=== PATIENT | male | born 1970 | race African-American/Black ===

== ENCOUNTER 2017-02-01 20:57 | Inpatient (IN) | payer MEDICARE ==
[~2017-02-01] VITALS: Ht 175.3 cm; Wt 76.4 kg
[~2017-02-01 20:57] MED LIST: BENZ0.5T6 PO; OLAN20TA17 PO; SERT50TA12 PO
[2017-02-01 21:00] VITALS: BP 103/62
[2017-02-01] MEDS ORDERED: HALOPERIDOL 5 MG TABLET PO PRN (21:30)
[2017-02-01] MEDS ORDERED: ACETAMINOPHEN 325 MG TABLET PO PRN (21:45)
[2017-02-01] MEDS ORDERED: IBUPROFEN 600 MG TABLET PO PRN (21:45)
[2017-02-01] MEDS ORDERED: ONDANSETRON HCL 4 MG TABLET PO PRN (21:45)
[2017-02-01] MEDS ORDERED: PETROLATUM,WHITE 71 GM JELLY TP PRN (21:45)
[2017-02-01] MEDS ORDERED: ALBUTEROL SULFATE HFA 90 MCG/PUFF 8 GM INHALER IH PRN (21:45)
[2017-02-01] MEDS ORDERED: BENZOCAINE/MENTHOL LOZENGE PO PRN (21:45)
[2017-02-01] MEDS ORDERED: CloNIDine HCL 0.1 MG TABLET PO PRN (21:45)
[2017-02-01] MEDS ORDERED: LOPERAMIDE HCL 2 MG CAPSULE PO PRN (21:45)
[2017-02-01] MEDS ORDERED: MAGNESIUM HYDROXIDE SUSPENSION 30 ML UDCUP PO PRN (21:45)
[2017-02-01] MEDS ORDERED: MAG HYDROX/AL HYDROX/SIMETH 30 ML SUSP UDCUP PO PRN (21:45)
[2017-02-02 07:22] LABS: BASOPHILS # (AUTO) 0.05 K/uL (0.00-0.20); BASOPHILS % (AUTO) 0.7 % (0.0-2.0); EOSINOPHILS % (AUTO) 9.08 % (1.0-6.0); HEMATOCRIT 40.8 % (41-53); HEMOGLOBIN 13.5 g/dL (13.5-17.5); LYMPHOCYTES # (AUTO) 2.7 K/uL (1.0-4.8); LYMPHOCYTES % (AUTO) 35.3 % (22.0-44.0); MEAN CORPUSCULAR HEMOGLOBIN 28.5 pg (26.0-34.0); MEAN CORPUSCULAR VOLUME 86 fL (80-100); MONOCYTES # (AUTO) 0.6 K/uL (0.1-1.0); MONOCYTES % (AUTO) 7.2 % (2.0-9.0); NEUTROPHILS # (AUTO) 3.7 K/uL (1.8-7.7); NEUTROPHILS % (AUTO) 47.7 % (40.0-70.0); PLATELET COUNT (AUTO) 249 K/uL (150-450); RED BLOOD CELL COUNT(AUTO) 4.73 MIL/uL (4.50-5.90); RED CELL DISTRIBUTION WIDTH 14.7 % (11.5-14.5); WHITE BLOOD COUNT (AUTO) 7.7 K/uL (4.5-11.0)
[2017-02-02 07:48] LABS: HEMOGLOBIN A1C 5.5 % (4.5-6.2)
[2017-02-02 07:58] LABS: ANION GAP 9 mmol/L (8-16); CARBON DIOXIDE 25 mmol/L (22-29); CHLORIDE 107 mmol/L (98-107); CHOL/HDL RATIO 3.6 (4.2-7.3); CREATININE 0.85 mg/dL (0.60-1.30); GLOMERULAR FILTR. RATE CALC > 60 mL/min (>60); POTASSIUM 4.6 mmol/L (3.5-5.1); SODIUM SERUM 141 mmol/L (136-145); THYROID STIMULATING HORMONE 1.61 uIU/mL (0.36-3.74); UREA NITROGEN, BLOOD 19 mg/dL (7-18)
[2017-02-02] MEDS: FERROUS SULFATE 325 MG EC TABLET PO SCH ×2 (08:36→16:58)
[2017-02-02] MEDS: BENZTROPINE MESYLATE 0.5 MG TABLET PO SCH ×2 (08:36→16:45)
[2017-02-02 08:52] VITALS: BP 105/75
[2017-02-02] MEDS ORDERED: BACITRACIN 28.4 GM OINTMENT TP SCH (09:00)
[2017-02-02 16:32] VITALS: BP 110/77
[2017-02-02] MEDS: OLANZapine 10 MG TABLET PO SCH (21:09)
[2017-02-02] MEDS: ZOLPIDEM TARTRATE 10 MG TABLET PO PRN (22:26)
[2017-02-03 00:40] VITALS: BP 106/63
[2017-02-03 08:36] VITALS: BP 103/65
[2017-02-03] MEDS: BENZTROPINE MESYLATE 0.5 MG TABLET PO SCH ×2 (09:27→16:56)
[2017-02-03] MEDS: OMEGA-3/DHA/EPA/FISH OIL 500 MG CAPSULE PO SCH (09:27)
[2017-02-03 16:55] VITALS: BP 111/73
[2017-02-03] MEDS: LORazepam 2 MG TABLET PO PRN (16:56)
[2017-02-03] MEDS: OLANZapine 10 MG TABLET PO SCH (20:44)
[2017-02-03] MEDS: ZOLPIDEM TARTRATE 10 MG TABLET PO PRN (22:11)
[2017-02-04 04:57] VITALS: BP 92/64
[2017-02-04 08:19] VITALS: BP 115/74
[2017-02-04] MEDS: OMEGA-3/DHA/EPA/FISH OIL 500 MG CAPSULE PO SCH (08:53)
[2017-02-04] MEDS: BENZTROPINE MESYLATE 0.5 MG TABLET PO SCH ×2 (08:54→16:30)
[2017-02-04] MEDS: LORazepam 2 MG TABLET PO PRN (09:26)
[2017-02-04 16:20] VITALS: BP 113/79
[2017-02-04] MEDS: OLANZapine 10 MG TABLET PO SCH (20:30)
[2017-02-05 01:14] VITALS: BP 110/68
[2017-02-05 08:39] VITALS: BP 112/67
[2017-02-05] MEDS: BENZTROPINE MESYLATE 0.5 MG TABLET PO SCH ×2 (08:41→16:46)
[2017-02-05] MEDS: OMEGA-3/DHA/EPA/FISH OIL 500 MG CAPSULE PO SCH (08:41)
[2017-02-05 16:21] VITALS: BP 124/75
[2017-02-05] MEDS: OLANZapine 10 MG TABLET PO SCH (20:40)
[2017-02-06 01:42] VITALS: BP 106/61
[2017-02-06 08:35] VITALS: BP 109/69
[2017-02-06] MEDS: OMEGA-3/DHA/EPA/FISH OIL 500 MG CAPSULE PO SCH (09:14)
[2017-02-06] MEDS: BENZTROPINE MESYLATE 0.5 MG TABLET PO SCH ×2 (09:14→17:02)
[2017-02-06 16:15] VITALS: BP 117/84
[2017-02-06] MEDS: OLANZapine 10 MG TABLET PO SCH (20:50)
[2017-02-07 00:12] VITALS: BP 106/68
[2017-02-07 08:34] VITALS: BP 117/73
[2017-02-07] MEDS: OMEGA-3/DHA/EPA/FISH OIL 500 MG CAPSULE PO SCH (09:02)
[2017-02-07] MEDS: BENZTROPINE MESYLATE 0.5 MG TABLET PO SCH ×2 (09:02→16:45)
[2017-02-07 16:12] VITALS: BP 121/70
[2017-02-07] MEDS: OLANZapine 10 MG TABLET PO SCH (20:41)
[2017-02-08 08:00] VITALS: BP 116/72
[2017-02-08] MEDS: OMEGA-3/DHA/EPA/FISH OIL 500 MG CAPSULE PO SCH (09:14)
[2017-02-08] MEDS: BENZTROPINE MESYLATE 0.5 MG TABLET PO SCH ×2 (09:14→16:59)
[2017-02-08 16:28] VITALS: BP 105/72
[2017-02-08] MEDS: OLANZapine 10 MG TABLET PO SCH (20:06)
[2017-02-09 06:03] VITALS: BP 112/70
[2017-02-09 08:19] VITALS: BP 108/72
[2017-02-09] MEDS: BENZTROPINE MESYLATE 0.5 MG TABLET PO SCH ×2 (08:33→16:41)
[2017-02-09] MEDS: OMEGA-3/DHA/EPA/FISH OIL 500 MG CAPSULE PO SCH (08:33)
[2017-02-09] MEDS: LORazepam 2 MG TABLET PO PRN (09:38)
[2017-02-09 16:52] VITALS: BP 110/65
[2017-02-09] MEDS: OLANZapine 10 MG TABLET PO SCH (20:40)
[2017-02-10 06:40] VITALS: BP 116/61
[2017-02-10 08:05] VITALS: BP 110/64
[2017-02-10] MEDS: BENZTROPINE MESYLATE 0.5 MG TABLET PO SCH ×2 (08:15→17:07)
[2017-02-10] MEDS: OMEGA-3/DHA/EPA/FISH OIL 500 MG CAPSULE PO SCH (08:15)
[2017-02-10] MEDS: LORazepam 2 MG TABLET PO PRN (08:19)
[2017-02-10 16:23] VITALS: BP 108/63
[2017-02-10] MEDS: OLANZapine 10 MG TABLET PO SCH (20:38)
[2017-02-11 05:58] VITALS: BP 105/62
[2017-02-11 08:00] VITALS: BP 108/68
[2017-02-11] MEDS: BENZTROPINE MESYLATE 0.5 MG TABLET PO SCH ×2 (08:29→16:58)
[2017-02-11] MEDS: OMEGA-3/DHA/EPA/FISH OIL 500 MG CAPSULE PO SCH (08:30)
[2017-02-11 16:17] VITALS: BP 105/65
[2017-02-11] MEDS: OLANZapine 10 MG TABLET PO SCH (20:34)
[2017-02-12 07:14] VITALS: BP 115/60
[2017-02-12 08:29] VITALS: BP 111/65
[2017-02-12] MEDS: BENZTROPINE MESYLATE 0.5 MG TABLET PO SCH ×2 (09:11→17:03)
[2017-02-12] MEDS: OMEGA-3/DHA/EPA/FISH OIL 500 MG CAPSULE PO SCH (09:11)
[2017-02-12 16:20] VITALS: BP 122/74
[2017-02-12] MEDS: OLANZapine 10 MG TABLET PO SCH (20:38)
[2017-02-13 06:11] VITALS: BP 100/73
[2017-02-13 08:22] VITALS: BP 106/69
[2017-02-13] MEDS: BENZTROPINE MESYLATE 0.5 MG TABLET PO SCH ×2 (09:03→16:49)
[2017-02-13] MEDS: OMEGA-3/DHA/EPA/FISH OIL 500 MG CAPSULE PO SCH (09:03)
[2017-02-13 16:24] VITALS: BP 103/62
[2017-02-13] MEDS: OLANZapine 10 MG TABLET PO SCH (20:34)
[2017-02-14 06:00] VITALS: BP 102/66
[2017-02-14 08:42] VITALS: BP 99/68
[2017-02-14] MEDS: BENZTROPINE MESYLATE 0.5 MG TABLET PO SCH ×2 (09:02→16:44)
[2017-02-14] MEDS: OMEGA-3/DHA/EPA/FISH OIL 500 MG CAPSULE PO SCH (09:02)
[2017-02-14 16:07] VITALS: BP 107/61
[2017-02-14] MEDS: OLANZapine 10 MG TABLET PO SCH (20:32)
[2017-02-15 01:38] VITALS: BP 102/65
[2017-02-15 08:29] VITALS: BP 135/75
[2017-02-15] MEDS: OMEGA-3/DHA/EPA/FISH OIL 500 MG CAPSULE PO SCH (08:32)
[2017-02-15] MEDS: BENZTROPINE MESYLATE 0.5 MG TABLET PO SCH ×2 (08:32→16:20)
[2017-02-15 16:13] VITALS: BP 104/60
[2017-02-15] MEDS: OLANZapine 10 MG TABLET PO SCH (20:18)
[2017-02-16 05:32] VITALS: BP 110/60
[2017-02-16] MEDS: BENZTROPINE MESYLATE 0.5 MG TABLET PO SCH ×2 (08:16→16:51)
[2017-02-16] MEDS: OMEGA-3/DHA/EPA/FISH OIL 500 MG CAPSULE PO SCH (08:16)
[2017-02-16 08:20] VITALS: BP 112/76
[2017-02-16 17:30] VITALS: BP 111/68
[2017-02-16] MEDS: OLANZapine 10 MG TABLET PO SCH (20:29)
[2017-02-17 06:38] VITALS: BP 103/68
[2017-02-17] MEDS: OMEGA-3/DHA/EPA/FISH OIL 500 MG CAPSULE PO SCH (08:23)
[2017-02-17] MEDS: BENZTROPINE MESYLATE 0.5 MG TABLET PO SCH ×2 (08:23→16:58)
[2017-02-17 08:43] VITALS: BP 108/72
[2017-02-17 17:47] VITALS: BP 109/68
[2017-02-17] MEDS: OLANZapine 10 MG TABLET PO SCH (20:30)
[2017-02-18 01:52] VITALS: BP 101/60
[2017-02-18 08:53] VITALS: BP 114/64
[2017-02-18] MEDS: BENZTROPINE MESYLATE 0.5 MG TABLET PO SCH ×2 (09:02→16:33)
[2017-02-18] MEDS: OMEGA-3/DHA/EPA/FISH OIL 500 MG CAPSULE PO SCH (09:02)
[2017-02-18 16:30] VITALS: BP 94/60
[2017-02-18] MEDS: OLANZapine 10 MG TABLET PO SCH (20:31)
[2017-02-19 00:55] VITALS: BP 100/64
[2017-02-19 08:12] VITALS: BP 102/66
[2017-02-19] MEDS: BENZTROPINE MESYLATE 0.5 MG TABLET PO SCH ×2 (08:12→16:28)
[2017-02-19] MEDS: OMEGA-3/DHA/EPA/FISH OIL 500 MG CAPSULE PO SCH (08:12)
[2017-02-19 16:15] VITALS: BP 103/63
[2017-02-19] MEDS: OLANZapine 10 MG TABLET PO SCH (21:04)
[2017-02-20 00:13] VITALS: BP 106/64
[2017-02-20] MEDS ORDERED: OMEG-135 PO (08:03)
[2017-02-20] MEDS: BENZTROPINE MESYLATE 0.5 MG TABLET PO SCH (08:05)
[2017-02-20] MEDS: OMEGA-3/DHA/EPA/FISH OIL 500 MG CAPSULE PO SCH (08:05)
== END 2017-02-20 10:00 | disposition home or self-care (01) | DRG 885 ==
LOC: EDSTATUS 20:57 → B2X 21:24
PROVIDERS: ADMIT Psychiatry & Neurology Psychiatry; ATTEND Psychiatry & Neurology Psychiatry
DX: F20.0 Paranoid schizophrenia (principal); J44.9 Chronic obstructive pulmonary disease, unspecified; E78.5 Hyperlipidemia, unspecified; F17.200 Nicotine dependence, unspecified, uncomplicated; G47.00 Insomnia, unspecified; K21.9 Gastro-esophageal reflux disease without esophagitis; K59.00 Constipation, unspecified; M54.9 Dorsalgia, unspecified; Z71.6 Tobacco abuse counseling; Z56.0 Unemployment, unspecified; Z79.899 Other long term (current) drug therapy
CPT/HCPCS: 83036; 84439; 84443; 87081; 99285

== ENCOUNTER 2018-07-10 15:38 | Inpatient (IN) | payer MEDICARE, MEDICAID ==
[~2018-07-10] VITALS: Ht 177.8 cm; Wt 97.3 kg
[~2018-07-10 15:38] MED LIST changes: +BENZ0.5T44 PO; -BENZ0.5T6 PO; +OMEG-135 PO; -SERT50TA12 PO
[2018-07-10] MEDS ORDERED: LORazepam 2 MG/ML VIAL IM ONE (18:15)
[2018-07-10] MEDS ORDERED: DiphenhydrAMINE HCL 50 MG/ML VIAL IM ONE (18:15)
[2018-07-10] MEDS ORDERED: HALOPERIDOL LACTATE 5 MG/ML VIAL IM ONE (18:15)
[2018-07-10] MEDS ORDERED: LORazepam 2 MG/ML VIAL ONE (18:41)
[2018-07-10] MEDS ORDERED: HALOPERIDOL LACTATE 5 MG/ML VIAL ONE (18:42)
[2018-07-10] MEDS ORDERED: DiphenhydrAMINE HCL 50 MG/ML VIAL ONE (18:42)
[2018-07-10 19:07] VITALS: BP 143/90
[2018-07-10] MEDS: OLANZapine 10 MG TABLET PO SCH (20:07)
[2018-07-10] MEDS ORDERED: MAG HYDROX/AL HYDROX/SIMETH ES 30 ML SUSPENSION UDCUP PO PRN (20:15)
[2018-07-10] MEDS ORDERED: BENZOCAINE/MENTHOL LOZENGE MM PRN (20:15)
[2018-07-10] MEDS ORDERED: DOCUSATE SODIUM 100 MG CAPSULE PO PRN (20:15)
[2018-07-10] MEDS ORDERED: ONDANSETRON HCL 4 MG TABLET PO PRN (20:15)
[2018-07-10] MEDS ORDERED: BACITRACIN 28.4 GM OINTMENT TP PRN (20:15)
[2018-07-10] MEDS ORDERED: ACETAMINOPHEN 325 MG TABLET PO PRN (20:15)
[2018-07-10] MEDS ORDERED: PETROLATUM,WHITE 71 GM JELLY TP PRN (20:15)
[2018-07-10] MEDS ORDERED: ALBUTEROL SULFATE HFA 90 MCG/PUFF 8 GM INHALER IH PRN (20:15)
[2018-07-10] MEDS ORDERED: MAGNESIUM HYDROXIDE SUSPENSION 30 ML UDCUP PO PRN (20:15)
[2018-07-10] MEDS ORDERED: CloNIDine HCL 0.1 MG TABLET PO PRN (20:15)
[2018-07-10] MEDS ORDERED: LOPERAMIDE HCL 2 MG CAPSULE PO PRN (20:15)
[2018-07-10] MEDS ORDERED: IBUPROFEN 600 MG TABLET PO PRN (20:15)
[2018-07-11 00:49] VITALS: BP 132/87
[2018-07-11] MEDS: LORazepam 2 MG TABLET PO PRN ×2 (08:23→16:19)
[2018-07-11] MEDS: OMEPRAZOLE 20 MG CAPSULE PO SCH (08:23)
[2018-07-11] MEDS: BENZTROPINE MESYLATE 0.5 MG TABLET PO SCH ×2 (08:23→16:18)
[2018-07-11 08:48] VITALS: BP 119/86
[2018-07-11] MEDS: HALOPERIDOL 5 MG TABLET PO PRN ×2 (10:58→16:19)
[2018-07-11 16:10] VITALS: BP 123/95
[2018-07-11] MEDS: OLANZapine 10 MG TABLET PO SCH (20:11)
[2018-07-12 00:56] VITALS: BP 135/92
[2018-07-12 08:12] VITALS: BP 132/82
[2018-07-12] MEDS: OMEPRAZOLE 20 MG CAPSULE PO SCH (08:28)
[2018-07-12] MEDS: BENZTROPINE MESYLATE 0.5 MG TABLET PO SCH ×2 (08:28→16:41)
[2018-07-12] MEDS: HALOPERIDOL 5 MG TABLET PO PRN ×2 (08:28→16:41)
[2018-07-12] MEDS: LORazepam 2 MG TABLET PO PRN ×2 (08:28→16:41)
[2018-07-12 16:13] VITALS: BP 136/79
[2018-07-12] MEDS: OLANZapine 10 MG TABLET PO SCH (20:21)
[2018-07-12] MEDS: ZOLPIDEM TARTRATE 10 MG TABLET PO PRN (20:44)
[2018-07-13 00:20] VITALS: BP 129/87
[2018-07-13] MEDS: HALOPERIDOL 5 MG TABLET PO PRN ×3 (01:13→14:33)
[2018-07-13] MEDS: LORazepam 2 MG TABLET PO PRN ×3 (01:13→14:33)
[2018-07-13] MEDS: OMEPRAZOLE 20 MG CAPSULE PO SCH (08:19)
[2018-07-13] MEDS: BENZTROPINE MESYLATE 0.5 MG TABLET PO SCH ×2 (08:19→17:06)
[2018-07-13 16:03] VITALS: BP 102/69
[2018-07-13] MEDS: OLANZapine 10 MG TABLET PO SCH (20:12)
[2018-07-13] MEDS: ZOLPIDEM TARTRATE 10 MG TABLET PO PRN (22:28)
[2018-07-14 00:01] VITALS: BP 138/87
[2018-07-14] MEDS: LORazepam 2 MG TABLET PO PRN ×3 (00:02→10:16)
[2018-07-14] MEDS: HALOPERIDOL 5 MG TABLET PO PRN ×4 (00:03→23:59)
[2018-07-14 05:26] VITALS: BP 142/92
[2018-07-14 08:03] LABS: BAND NEUTROPHILS % (MANUAL) 0 % (0-5)
[2018-07-14 08:12] LABS: HEMATOCRIT 39.8 % (41-53); HEMOGLOBIN 13.2 g/dL (13.5-17.5); MEAN CORPUSCULAR HEMOGLOBIN 27.9 pg (26.0-34.0); MEAN CORPUSCULAR HGB CONC 33.1 G/dL (31.0-37.0); MEAN CORPUSCULAR VOLUME 84 fL (80-100); PLATELET COUNT (AUTO) 250 K/uL (150-450); RED BLOOD CELL COUNT(AUTO) 4.73 MIL/uL (4.50-5.90); RED CELL DISTRIBUTION WIDTH 13.6 % (11.5-14.5)
[2018-07-14 08:37] LABS: ANION GAP 10 mmol/L (8-16); CALCIUM, TOTAL 9.4 mg/dL (8.8-10.5); CARBON DIOXIDE 26 mmol/L (22-29); CHLORIDE 104 mmol/L (98-107); CHOL/HDL RATIO 2.3 (4.2-7.3); CHOLESTEROL 102 mg/dL (131-200); CREATININE 0.77 mg/dL (0.60-1.30); GLOMERULAR FILTR. RATE CALC > 60 mL/min (>60); GLUCOSE,RANDOM 114 mg/dL (70-110); HDL CHOLESTEROL 44 mg/dL (40-60); LDL CHOL (CALC.) 48 mg/dL (0-130); PHOSPHORUS 3.7 mg/dL (2.5-4.9); SODIUM SERUM 140 mmol/L (136-145); THYROID STIMULATING HORMONE 1.17 uIU/mL (0.36-3.74); TRIGLYCERIDES 52 mg/dL (15-150); UREA NITROGEN, BLOOD 17 mg/dL (7-18)
[2018-07-14 08:39] VITALS: BP 140/78
[2018-07-14 09:42] LABS: EOSINOPHILS % (MANUAL) 3 % (1-6); LYMPHOCYTES % (MANUAL) 24 % (22-44); MONOCYTES % (MANUAL) 7 % (2-9); SEGMENTED NEUTROPHILS % 66 % (40-70)
[2018-07-14] MEDS: BENZTROPINE MESYLATE 0.5 MG TABLET PO SCH ×2 (10:10→16:33)
[2018-07-14] MEDS: OMEPRAZOLE 20 MG CAPSULE PO SCH (10:18)
[2018-07-14] MEDS: LACTULOSE 20 GM/30 ML SOLUTION UDCUP PO SCH ×2 (12:30→16:32)
[2018-07-14] MEDS: ZOLPIDEM TARTRATE 10 MG TABLET PO PRN (20:54)
[2018-07-14] MEDS: OLANZapine 10 MG TABLET PO SCH (20:54)
[2018-07-15 00:30] VITALS: BP 110/68
[2018-07-15 08:07] VITALS: BP 141/95
[2018-07-15] MEDS: BENZTROPINE MESYLATE 0.5 MG TABLET PO SCH ×2 (09:44→17:03)
[2018-07-15] MEDS: OMEPRAZOLE 20 MG CAPSULE PO SCH (09:44)
[2018-07-15] MEDS: LACTULOSE 20 GM/30 ML SOLUTION UDCUP PO SCH ×3 (09:45→17:02)
[2018-07-15] MEDS: LORazepam 2 MG TABLET PO PRN (14:17)
[2018-07-15 16:16] VITALS: BP 142/90
[2018-07-15] MEDS ORDERED: MAGNESIUM CITRATE 300 ML ORAL SOLUTION PO ONE (19:45)
[2018-07-15] MEDS: OLANZapine 10 MG TABLET PO SCH (21:03)
[2018-07-16 02:15] VITALS: BP 144/93
[2018-07-16 08:01] LABS: ANION GAP 11 mmol/L (8-16); CALCIUM, TOTAL 10.2 mg/dL (8.8-10.5); CARBON DIOXIDE 27 mmol/L (22-29); CHLORIDE 105 mmol/L (98-107); CREATININE 1.15 mg/dL (0.60-1.30); GLOMERULAR FILTR. RATE CALC > 60 mL/min (>60); GLUCOSE,RANDOM 166 mg/dL (70-110); POTASSIUM 4.4 mmol/L (3.5-5.1); SODIUM SERUM 143 mmol/L (136-145); UREA NITROGEN, BLOOD 20 mg/dL (7-18)
[2018-07-16] MEDS: LORazepam 2 MG TABLET PO PRN ×2 (09:25→21:28)
[2018-07-16] MEDS: DOCUSATE SODIUM 100 MG CAPSULE PO SCH (09:25)
[2018-07-16] MEDS: OMEPRAZOLE 20 MG CAPSULE PO SCH (09:25)
[2018-07-16] MEDS: HALOPERIDOL 5 MG TABLET PO PRN (09:25)
[2018-07-16] MEDS: BENZTROPINE MESYLATE 0.5 MG TABLET PO SCH ×2 (09:25→16:05)
[2018-07-16] MEDS: LACTULOSE 20 GM/30 ML SOLUTION UDCUP PO SCH ×3 (09:26→16:06)
[2018-07-16 13:48] VITALS: BP 150/99
[2018-07-16] MEDS: OLANZapine 10 MG TABLET PO SCH (20:25)
[2018-07-16 21:29] VITALS: BP_SYST 134; BP_SYST 144; BP_DIAS 85; BP_DIAS 92
[2018-07-17] MEDS: BENZTROPINE MESYLATE 0.5 MG TABLET PO SCH ×2 (09:00→16:19)
[2018-07-17] MEDS: LACTULOSE 20 GM/30 ML SOLUTION UDCUP PO SCH ×3 (09:00→16:19)
[2018-07-17] MEDS: DOCUSATE SODIUM 100 MG CAPSULE PO SCH (09:00)
[2018-07-17] MEDS: OMEPRAZOLE 20 MG CAPSULE PO SCH (09:00)
[2018-07-17] MEDS ORDERED: NYSTATIN 15 GM POWDER BOTTLE TP SCH (11:00)
[2018-07-17] MEDS ORDERED: BACITRACIN 28.4 GM OINTMENT TP SCH (11:00)
[2018-07-17] MEDS: HALOPERIDOL 5 MG TABLET PO PRN (11:48)
[2018-07-17] MEDS: LORazepam 2 MG TABLET PO PRN (11:48)
[2018-07-17] MEDS ORDERED: DSS100 PO (15:57)
[2018-07-17] MEDS ORDERED: BACI30OI6 TP (15:57)
[2018-07-17] MEDS ORDERED: NYST30OI6 TP (15:57)
[2018-07-17] MEDS ORDERED: OMEP20 PO (15:57)
[2018-07-17] MEDS ORDERED: LACT30L PO (15:57)
== END 2018-07-17 17:00 | disposition short-term general hospital (02) | DRG 885 ==
LOC: B2X 18:18
PROVIDERS: ADMIT Psychiatry & Neurology Psychiatry; ATTEND Psychiatry & Neurology Psychiatry
DX: F20.0 Paranoid schizophrenia (principal); F17.200 Nicotine dependence, unspecified, uncomplicated; E78.5 Hyperlipidemia, unspecified; E78.1 Pure hyperglyceridemia; G47.00 Insomnia, unspecified; J44.9 Chronic obstructive pulmonary disease, unspecified; K21.9 Gastro-esophageal reflux disease without esophagitis; K59.00 Constipation, unspecified; Z91.19 Patient's noncompliance with other medical treatment and regimen; Z71.6 Tobacco abuse counseling
CPT/HCPCS: 83735; 84100; 84443; 85007; 87081; J1200; J1630; J2060; J3535

== ENCOUNTER 2018-07-17 17:30 | Inpatient (IN) | payer MEDICARE, OTHER ==
[~2018-07-17] VITALS: Ht 175.3 cm; Wt 94.8 kg
[~2018-07-17 17:30] MED LIST changes: +BACI30OI6 TP; +DSS100 PO; +LACT30L PO; +NYST30OI6 TP; +OMEP20 PO
[2018-07-17 18:14] VITALS: BP 129/80
[2018-07-17] MEDS ORDERED: ZOLPIDEM TARTRATE 10 MG TABLET PO PRN (18:15)
[2018-07-17] MEDS ORDERED: LORazepam 2 MG/ML VIAL IM PRN (18:15)
[2018-07-17] MEDS ORDERED: HALOPERIDOL LACTATE 5 MG/ML VIAL IVP PRN (18:15)
[2018-07-17] MEDS ORDERED: CloNIDine HCL 0.1 MG TABLET PO PRN (18:15)
[2018-07-17] MEDS ORDERED: MAG HYDROX/AL HYDROX/SIMETH ES 30 ML SUSPENSION UDCUP PO PRN (18:15)
[2018-07-17] MEDS ORDERED: ONDANSETRON HCL 4 MG TABLET PO PRN (18:15)
[2018-07-17] MEDS ORDERED: LOPERAMIDE HCL 2 MG CAPSULE PO PRN (18:15)
[2018-07-17] MEDS ORDERED: IBUPROFEN 600 MG TABLET PO PRN (18:15)
[2018-07-17] MEDS ORDERED: MAGNESIUM HYDROXIDE SUSPENSION 30 ML UDCUP PO PRN (18:15)
[2018-07-17] MEDS ORDERED: PETROLATUM,WHITE 71 GM JELLY TP PRN (18:15)
[2018-07-17] MEDS ORDERED: HALOPERIDOL 5 MG TABLET PO PRN (18:45)
[2018-07-17] MEDS ORDERED: PNEUMOCOCCAL VACCINE POLYVALENT 0.5 ML VIAL [PPSV23] IM ONE (19:00)
[2018-07-17] MEDS: BENZTROPINE MESYLATE 0.5 MG TABLET PO SCH (20:54)
[2018-07-17] MEDS: LACTULOSE 20 GM/30 ML SOLUTION UDCUP PO SCH (20:54)
[2018-07-17] MEDS: LORazepam 2 MG TABLET PO PRN (20:54)
[2018-07-17] MEDS: OLANZapine 10 MG TABLET PO SCH (20:54)
[2018-07-17] MEDS: DOCUSATE SODIUM 100 MG CAPSULE PO SCH (20:55)
[2018-07-17] MEDS: BACITRACIN 28.4 GM OINTMENT TP SCH (20:55)
[2018-07-17] MEDS: NYSTATIN 30 GM OINTMENT TP SCH (20:55)
[2018-07-17 23:09] VITALS: BP 130/89
[2018-07-18] MEDS: LORazepam 2 MG TABLET PO PRN (03:33)
[2018-07-18 05:47] VITALS: BP 143/98
[2018-07-18 06:16] LABS: BASOPHILS % (AUTO) 0.3 % (0.0-2.0); EOSINOPHILS % (AUTO) 0.1 % (1.0-6.0); HEMATOCRIT 40.2 % (41-53); LYMPHOCYTES # (AUTO) 1.3 K/uL (1.0-4.8); LYMPHOCYTES % (AUTO) 14.9 % (22.0-44.0); MEAN CORPUSCULAR HEMOGLOBIN 27.9 pg (26.0-34.0); MEAN CORPUSCULAR HGB CONC 32.3 G/dL (31.0-37.0); MEAN CORPUSCULAR VOLUME 87 fL (80-100); MONOCYTES # (AUTO) 1.1 K/uL (0.1-1.0); MONOCYTES % (AUTO) 12.6 % (2.0-9.0); NEUTROPHILS # (AUTO) 6.5 K/uL (1.8-7.7); NEUTROPHILS % (AUTO) 72.1 % (40.0-70.0); PLATELET COUNT (AUTO) 289 K/uL (150-450); RED BLOOD CELL COUNT(AUTO) 4.64 MIL/uL (4.50-5.90); RED CELL DISTRIBUTION WIDTH 14.5 % (11.5-14.5)
[2018-07-18 06:37] LABS: LACTIC ACID 1.6 mmol/L (0.4-2.0)
[2018-07-18 06:56] LABS: ALANINE AMINOTRANSFERASE 345 U/L (12-78); ALBUMIN 3.7 g/dL (3.4-5.0); ALKALINE PHOSPHATASE 81 U/L (46-116); ANION GAP 11 mmol/L (8-16); ASPARTATE AMINOTRANSFERASE 120 U/L (15-37); BILIRUBIN,TOTAL 0.8 mg/dL (0.1-1.0); CALCIUM, TOTAL 9.6 mg/dL (8.8-10.5); CARBON DIOXIDE 28 mmol/L (22-29); CHLORIDE 108 mmol/L (98-107); CREATININE 1.23 mg/dL (0.60-1.30); GLOMERULAR FILTR. RATE CALC > 60 mL/min (>60); GLUCOSE,RANDOM 129 mg/dL (70-110); POTASSIUM 4.1 mmol/L (3.5-5.1); SODIUM SERUM 147 mmol/L (136-145); TOTAL PROTEIN, SERUM 8.1 g/dL (6.4-8.2); UREA NITROGEN, BLOOD 28 mg/dL (7-18)
[2018-07-18] MEDS: LACTULOSE 20 GM/30 ML SOLUTION UDCUP PO SCH ×3 (08:54→20:32)
[2018-07-18] MEDS: DOCUSATE SODIUM 100 MG CAPSULE PO SCH (08:54)
[2018-07-18] MEDS: BACITRACIN 28.4 GM OINTMENT TP SCH ×2 (08:56→20:33)
[2018-07-18] MEDS: NYSTATIN 30 GM OINTMENT TP SCH ×2 (08:56→20:33)
[2018-07-18] MEDS: BENZTROPINE MESYLATE 0.5 MG TABLET PO SCH ×2 (08:56→20:32)
[2018-07-18 09:00] VITALS: BP 141/85
[2018-07-18] MEDS ORDERED: OMEPRAZOLE 20 MG CAPSULE PO SCH (09:00)
[2018-07-18] MEDS ORDERED: LORazepam 2 MG/ML VIAL IVP ONE (10:00)
[2018-07-18 11:05] VITALS: BP 128/89
[2018-07-18 13:05] LABS: APPEARANCE,URINE CLEAR (CLEAR); GLUCOSE, URINE (UA) NEGATIVE (NEGATIVE); KETONES,URINE 40 mg/dL (NEGATIVE); LEUKOCYTE ESTERASE ,URINE NEGATIVE (NEGATIVE); NITRATE,URINE NEGATIVE (NEGATIVE); OCCULT BLOOD,URINE SMALL (NEGATIVE); PH,URINE 5.5 (5.0-8.0); PROTEIN,URINE SEE CONFIRM (NEGATIVE); UROBILINOGEN,URINE 0.2 mg/dL (<=1.0)
[2018-07-18 13:27] LABS: AMPHET/METH SCREEN,URINE NEGATIVE (NEGATIVE); BARBITURATE SCREEN, URINE NEGATIVE (NEGATIVE); BENZODIAZEPINES SCREEN,URINE NEGATIVE (NEGATIVE); CANNABINOID SCREEN,URINE NEGATIVE (NEGATIVE); COCAINE SCREEN,URINE NEGATIVE (NEGATIVE); METHADONE SCREEN, URINE NEGATIVE (NEGATIVE); OPIATE SCREEN,URINE NEGATIVE (NEGATIVE); PHENCYCLIDINE SCREEN,URINE NEGATIVE (NEGATIVE)
[2018-07-18 13:55] LABS: BILIRUBIN,URINE PRELIM. POSITIVE (NEGATIVE)
[2018-07-18 14:14] LABS: BACTERIA,URINE Few /HPF (None Seen); SQUAMOUS EPITHELIAL CELL,UR Few /LPF (None Seen); SULFOSALICYLIC ACID,URINE 1+ (Negative); WBC,URINE 0-2 /HPF (0-5)
[2018-07-18 15:40] VITALS: BP 124/86
[2018-07-18] MEDS: BISACODYL 10 MG RECTAL RECTAL SUPPOSITORY PR SCH (16:26)
[2018-07-18] MEDS: OLANZapine 10 MG TABLET PO SCH (20:32)
[2018-07-18] MEDS: HEPARIN SODIUM,PORCINE 5,000 UNITS/ML VIAL SQ SCH (20:32)
[2018-07-18 23:36] VITALS: BP 163/93
[2018-07-19] VITALS (8 sets, daily range): BP systolic 119–162; BP diastolic 80–105
[2018-07-19] MEDS: ALBUTEROL SULFATE HFA 90 MCG/PUFF 8 GM INHALER IH PRN (03:55)
[2018-07-19] MEDS ORDERED: DEXTROSE 5%-0.45% SODIUM CHL 1,000 ML IV ONE (05:23)
[2018-07-19] MEDS ORDERED: IPRATROPIUM BROMIDE 0.5 MG/2.5 ML NEB SOLUTION NEB ONE (05:45)
[2018-07-19] MEDS ORDERED: ALBUTEROL SULFATE 2.5 MG/0.5 ML NEB SOLUTION NEB PRN (05:45)
[2018-07-19] MEDS ORDERED: ALBUTEROL SULFATE 2.5 MG/0.5 ML NEB SOLUTION NEB ONE (05:45)
[2018-07-19] MEDS ORDERED: IPRATROPIUM BROMIDE 0.5 MG/2.5 ML NEB SOLUTION NEB PRN (05:45)
[2018-07-19] MEDS: DEXTROSE 5%-0.45% SODIUM CHL 1,000 ML IV SCH ×3 (05:53→22:50)
[2018-07-19 06:59] LABS: BASOPHILS % (AUTO) 0.1 % (0.0-2.0); EOSINOPHILS % (AUTO) 0 % (1.0-6.0); HEMATOCRIT 45.4 % (41-53); HEMOGLOBIN 14.6 g/dL (13.5-17.5); LYMPHOCYTES # (AUTO) 1.1 K/uL (1.0-4.8); LYMPHOCYTES % (AUTO) 17.3 % (22.0-44.0); MEAN CORPUSCULAR HEMOGLOBIN 27.5 pg (26.0-34.0); MEAN CORPUSCULAR HGB CONC 32.2 G/dL (31.0-37.0); MEAN CORPUSCULAR VOLUME 85 fL (80-100); MONOCYTES # (AUTO) 0.4 K/uL (0.1-1.0); MONOCYTES % (AUTO) 5.9 % (2.0-9.0); NEUTROPHILS % (AUTO) 76.7 % (40.0-70.0); PLATELET COUNT (AUTO) 334 K/uL (150-450); RED BLOOD CELL COUNT(AUTO) 5.32 MIL/uL (4.50-5.90); RED CELL DISTRIBUTION WIDTH 14.3 % (11.5-14.5)
[2018-07-19 07:05] LABS: ANION GAP 15 mmol/L (8-16); CALCIUM, TOTAL 9.7 mg/dL (8.8-10.5); CARBON DIOXIDE 24 mmol/L (22-29); CHLORIDE 106 mmol/L (98-107); CREATININE 1.16 mg/dL (0.60-1.30); GLOMERULAR FILTR. RATE CALC > 60 mL/min (>60); GLUCOSE,RANDOM 212 mg/dL (70-110); POTASSIUM 4.1 mmol/L (3.5-5.1); SODIUM SERUM 145 mmol/L (136-145); UREA NITROGEN, BLOOD 28 mg/dL (7-18)
[2018-07-19 07:10] LABS: ALANINE AMINOTRANSFERASE 325 U/L (12-78); ALBUMIN 3.6 g/dL (3.4-5.0); ALKALINE PHOSPHATASE 94 U/L (46-116); ASPARTATE AMINOTRANSFERASE 95 U/L (15-37); BILIRUBIN,TOTAL 0.8 mg/dL (0.1-1.0); PHOSPHORUS 4.7 mg/dL (2.5-4.9); TOTAL PROTEIN, SERUM 8.2 g/dL (6.4-8.2)
[2018-07-19 08:34] LABS: GLUCOSE,POINT OF CARE 212 MG/DL (70-110)
[2018-07-19] MEDS: BENZTROPINE MESYLATE 0.5 MG TABLET PO SCH ×2 (09:00→19:35)
[2018-07-19] MEDS: NYSTATIN 30 GM OINTMENT TP SCH (09:00)
[2018-07-19] MEDS: DOCUSATE SODIUM 100 MG CAPSULE PO SCH (09:00)
[2018-07-19] MEDS: LACTULOSE 20 GM/30 ML SOLUTION UDCUP PO SCH ×3 (09:00→19:35)
[2018-07-19] MEDS: BACITRACIN 28.4 GM OINTMENT TP SCH (09:00)
[2018-07-19] MEDS: PANTOPRAZOLE SODIUM 40 MG/VIAL IVP SCH (09:06)
[2018-07-19] MEDS: HEPARIN SODIUM,PORCINE 5,000 UNITS/ML VIAL SQ SCH ×2 (09:06→20:13)
[2018-07-19] MEDS: BISACODYL 10 MG RECTAL RECTAL SUPPOSITORY PR SCH (10:04)
[2018-07-20] VITALS (7 sets, daily range): BP systolic 118–165; BP diastolic 82–113
[2018-07-20] MEDS: ALBUTEROL SULFATE HFA 90 MCG/PUFF 8 GM INHALER IH PRN (04:30)
[2018-07-20 05:09] LABS: BASOPHILS % (AUTO) 0.2 % (0.0-2.0); EOSINOPHILS % (AUTO) 0.5 % (1.0-6.0); HEMOGLOBIN 13.1 g/dL (13.5-17.5); LYMPHOCYTES # (AUTO) 1.7 K/uL (1.0-4.8); LYMPHOCYTES % (AUTO) 17.6 % (22.0-44.0); MEAN CORPUSCULAR HEMOGLOBIN 27.5 pg (26.0-34.0); MEAN CORPUSCULAR HGB CONC 32.1 G/dL (31.0-37.0); MEAN CORPUSCULAR VOLUME 86 fL (80-100); MONOCYTES # (AUTO) 0.8 K/uL (0.1-1.0); MONOCYTES % (AUTO) 8.5 % (2.0-9.0); NEUTROPHILS # (AUTO) 7.2 K/uL (1.8-7.7); NEUTROPHILS % (AUTO) 73.2 % (40.0-70.0); PLATELET COUNT (AUTO) 263 K/uL (150-450); RED BLOOD CELL COUNT(AUTO) 4.78 MIL/uL (4.50-5.90); RED CELL DISTRIBUTION WIDTH 14.3 % (11.5-14.5)
[2018-07-20 05:19] LABS: ALANINE AMINOTRANSFERASE 234 U/L (12-78); ALBUMIN 2.9 g/dL (3.4-5.0); ALKALINE PHOSPHATASE 77 U/L (46-116); AMYLASE 19 U/L (25-115); ANION GAP 8 mmol/L (8-16); ASPARTATE AMINOTRANSFERASE 40 U/L (15-37); BILIRUBIN,TOTAL 0.7 mg/dL (0.1-1.0); CALCIUM, TOTAL 9.1 mg/dL (8.8-10.5); CARBON DIOXIDE 31 mmol/L (22-29); CHLORIDE 107 mmol/L (98-107); CREATININE 1.02 mg/dL (0.60-1.30); GLOMERULAR FILTR. RATE CALC > 60 mL/min (>60); GLUCOSE,RANDOM 125 mg/dL (70-110); LIPASE 39 U/L (73-393); PHOSPHORUS 2.7 mg/dL (2.5-4.9); POTASSIUM 3.5 mmol/L (3.5-5.1); SODIUM SERUM 146 mmol/L (136-145); TOTAL PROTEIN, SERUM 7.1 g/dL (6.4-8.2); UREA NITROGEN, BLOOD 20 mg/dL (7-18)
[2018-07-20] MEDS ORDERED: SODIUM CHLORIDE 0.9% 1,000 ML IV ONE (08:36)
[2018-07-20] MEDS: BISACODYL 10 MG RECTAL RECTAL SUPPOSITORY PR SCH (08:55)
[2018-07-20] MEDS: HEPARIN SODIUM,PORCINE 5,000 UNITS/ML VIAL SQ SCH ×2 (08:55→21:26)
[2018-07-20] MEDS: PANTOPRAZOLE SODIUM 40 MG/VIAL IVP SCH (08:55)
[2018-07-20] MEDS: ONDANSETRON HCL 4 MG/2 ML VIAL IVP PRN (08:55)
[2018-07-20] MEDS: LORazepam 2 MG/ML VIAL IVP PRN (08:55)
[2018-07-20] MEDS: LACTULOSE 20 GM/30 ML SOLUTION UDCUP PO SCH ×3 (08:56→21:26)
[2018-07-20] MEDS: BENZTROPINE MESYLATE 0.5 MG TABLET PO SCH ×2 (08:56→21:26)
[2018-07-20] MEDS: DOCUSATE SODIUM 100 MG CAPSULE PO SCH (08:56)
[2018-07-20] MEDS: DEXTROSE 5%-0.45% SODIUM CHL 1,000 ML IV SCH ×2 (11:50→21:27)
[2018-07-21] VITALS (10 sets, daily range): BP systolic 122–139; BP diastolic 83–99
[2018-07-21 04:37] LABS: BASOPHILS % (AUTO) 0.3 % (0.0-2.0); EOSINOPHILS % (AUTO) 2.1 % (1.0-6.0); HEMATOCRIT 36.9 % (41-53); LYMPHOCYTES # (AUTO) 1.2 K/uL (1.0-4.8); LYMPHOCYTES % (AUTO) 14.2 % (22.0-44.0); MEAN CORPUSCULAR HEMOGLOBIN 27.7 pg (26.0-34.0); MEAN CORPUSCULAR HGB CONC 32.5 G/dL (31.0-37.0); MEAN CORPUSCULAR VOLUME 85 fL (80-100); MONOCYTES # (AUTO) 0.7 K/uL (0.1-1.0); MONOCYTES % (AUTO) 8.5 % (2.0-9.0); NEUTROPHILS # (AUTO) 6.3 K/uL (1.8-7.7); NEUTROPHILS % (AUTO) 74.9 % (40.0-70.0); PLATELET COUNT (AUTO) 237 K/uL (150-450); RED BLOOD CELL COUNT(AUTO) 4.32 MIL/uL (4.50-5.90); RED CELL DISTRIBUTION WIDTH 14.2 % (11.5-14.5)
[2018-07-21 04:48] LABS: ANION GAP 9 mmol/L (8-16); CARBON DIOXIDE 27 mmol/L (22-29); CHLORIDE 109 mmol/L (98-107); GLOMERULAR FILTR. RATE CALC > 60 mL/min (>60); GLUCOSE,RANDOM 122 mg/dL (70-110); POTASSIUM 3.3 mmol/L (3.5-5.1); SODIUM SERUM 145 mmol/L (136-145); UREA NITROGEN, BLOOD 16 mg/dL (7-18)
[2018-07-21] MEDS ORDERED: POTASSIUM CHL 10 MEQ/WATER 50 ML IV PRN (06:00)
[2018-07-21] MEDS ORDERED: POTASSIUM CHLORIDE 20 MEQ ER TABLET PO PRN (06:00)
[2018-07-21] MEDS: POTASSIUM CHLORIDE 10% 40 MEQ/30 ML LIQUID UDCUP NG PRN ×3 (06:07→07:11)
[2018-07-21] MEDS: DEXTROSE 5%-0.45% SODIUM CHL 1,000 ML IV SCH ×4 (06:12→23:25)
[2018-07-21] MEDS: POTASSIUM CHL 10 MEQ/WATER 50 ML IV PRN ×3 (06:21→08:15)
[2018-07-21] MEDS: LORazepam 2 MG/ML VIAL IVP PRN (08:14)
[2018-07-21] MEDS: HEPARIN SODIUM,PORCINE 5,000 UNITS/ML VIAL SQ SCH ×2 (09:22→21:29)
[2018-07-21] MEDS: DOCUSATE SODIUM 100 MG CAPSULE PO SCH (09:22)
[2018-07-21] MEDS: PANTOPRAZOLE SODIUM 40 MG/VIAL IVP SCH (09:22)
[2018-07-22 04:16] VITALS: BP 132/79
[2018-07-22] MEDS: DEXTROSE 5%-0.45% SODIUM CHL 1,000 ML IV SCH ×3 (06:32→20:47)
[2018-07-22 07:32] LABS: BASOPHILS % (AUTO) 0.4 % (0.0-2.0); EOSINOPHILS % (AUTO) 3.6 % (1.0-6.0); HEMATOCRIT 37.3 % (41-53); HEMOGLOBIN 12.1 g/dL (13.5-17.5); LYMPHOCYTES # (AUTO) 1.2 K/uL (1.0-4.8); LYMPHOCYTES % (AUTO) 19.2 % (22.0-44.0); MEAN CORPUSCULAR HEMOGLOBIN 27.5 pg (26.0-34.0); MEAN CORPUSCULAR HGB CONC 32.4 G/dL (31.0-37.0); MEAN CORPUSCULAR VOLUME 85 fL (80-100); MONOCYTES # (AUTO) 0.5 K/uL (0.1-1.0); MONOCYTES % (AUTO) 7.3 % (2.0-9.0); NEUTROPHILS # (AUTO) 4.5 K/uL (1.8-7.7); NEUTROPHILS % (AUTO) 69.5 % (40.0-70.0); PLATELET COUNT (AUTO) 261 K/uL (150-450); RED CELL DISTRIBUTION WIDTH 13.6 % (11.5-14.5)
[2018-07-22 07:41] VITALS: BP 140/91
[2018-07-22] MEDS ORDERED: MAGNESIUM CITRATE 300 ML ORAL SOLUTION PO ONE (07:45)
[2018-07-22 07:48] LABS: ALANINE AMINOTRANSFERASE 119 U/L (12-78); ALBUMIN 2.4 g/dL (3.4-5.0); ALKALINE PHOSPHATASE 62 U/L (46-116); ANION GAP 8 mmol/L (8-16); ASPARTATE AMINOTRANSFERASE 36 U/L (15-37); BILIRUBIN,TOTAL 0.5 mg/dL (0.1-1.0); CALCIUM, TOTAL 8.5 mg/dL (8.8-10.5); CARBON DIOXIDE 25 mmol/L (22-29); CHLORIDE 101 mmol/L (98-107); CREATININE 0.63 mg/dL (0.60-1.30); GLOMERULAR FILTR. RATE CALC > 60 mL/min (>60); GLUCOSE,RANDOM 131 mg/dL (70-110); SODIUM SERUM 134 mmol/L (136-145); TOTAL PROTEIN, SERUM 6.4 g/dL (6.4-8.2)
[2018-07-22 08:09] LABS: UREA NITROGEN, BLOOD 9 mg/dL (7-18)
[2018-07-22] MEDS: HEPARIN SODIUM,PORCINE 5,000 UNITS/ML VIAL SQ SCH ×2 (08:39→20:45)
[2018-07-22] MEDS: DOCUSATE SODIUM 100 MG CAPSULE PO SCH (08:39)
[2018-07-22] MEDS: PANTOPRAZOLE SODIUM 40 MG/VIAL IVP SCH (08:39)
[2018-07-22] MEDS: POTASSIUM CHLORIDE 20 MEQ ER TABLET PO PRN (08:39)
[2018-07-22] MEDS ORDERED: POTASSIUM CHLORIDE 10% 40 MEQ/30 ML LIQUID UDCUP PO PRN (09:45)
[2018-07-22] MEDS: POTASSIUM CHLORIDE 10% 40 MEQ/30 ML LIQUID UDCUP NG PRN (09:56)
[2018-07-22 11:25] VITALS: BP 127/92
[2018-07-22 15:15] VITALS: BP 135/93
[2018-07-22] MEDS ORDERED: SODIUM PHOS/SODIUM BIPHOS 133 ML ENEMA PR ONE (18:00)
[2018-07-22] MEDS: LACTULOSE 20 GM/30 ML SOLUTION UDCUP PO SCH ×3 (18:40→22:41)
[2018-07-22 20:30] VITALS: BP 138/86
[2018-07-23] VITALS (7 sets, daily range): BP systolic 117–139; BP diastolic 65–95
[2018-07-23] MEDS: LACTULOSE 20 GM/30 ML SOLUTION UDCUP PO SCH ×13 (00:52→23:48)
[2018-07-23 06:15] LABS: ALANINE AMINOTRANSFERASE 209 U/L (12-78); ALKALINE PHOSPHATASE 81 U/L (46-116); ANION GAP 15 mmol/L (8-16); ASPARTATE AMINOTRANSFERASE 85 U/L (15-37); BILIRUBIN,TOTAL 0.5 mg/dL (0.1-1.0); CALCIUM, TOTAL 9.1 mg/dL (8.8-10.5); CARBON DIOXIDE 20 mmol/L (22-29); CHLORIDE 104 mmol/L (98-107); CREATININE 0.99 mg/dL (0.60-1.30); GLOMERULAR FILTR. RATE CALC > 60 mL/min (>60); GLUCOSE,RANDOM 150 mg/dL (70-110); POTASSIUM 3.2 mmol/L (3.5-5.1); SODIUM SERUM 139 mmol/L (136-145); UREA NITROGEN, BLOOD 8 mg/dL (7-18)
[2018-07-23] MEDS: DEXTROSE 5%-0.45% SODIUM CHL 1,000 ML IV SCH ×4 (06:57→23:48)
[2018-07-23] MEDS: HEPARIN SODIUM,PORCINE 5,000 UNITS/ML VIAL SQ SCH ×2 (08:28→20:07)
[2018-07-23] MEDS: DOCUSATE SODIUM 100 MG CAPSULE PO SCH (08:28)
[2018-07-23] MEDS: PANTOPRAZOLE SODIUM 40 MG/VIAL IVP SCH (08:28)
[2018-07-23] MEDS: POTASSIUM CHLORIDE 10% 40 MEQ/30 ML LIQUID UDCUP NG PRN (10:45)
[2018-07-23] MEDS: BENZTROPINE MESYLATE 0.5 MG TABLET PO SCH (22:18)
[2018-07-23] MEDS: OLANZapine 10 MG TABLET PO SCH (22:18)
[2018-07-24] MEDS: LACTULOSE 20 GM/30 ML SOLUTION UDCUP PO SCH ×7 (01:49→19:57)
[2018-07-24 04:15] VITALS: BP 134/92
[2018-07-24] MEDS: ONDANSETRON HCL 4 MG/2 ML VIAL IVP PRN (05:48)
[2018-07-24 07:44] VITALS: BP 127/89
[2018-07-24 08:50] LABS: ALANINE AMINOTRANSFERASE 221 U/L (12-78); ALKALINE PHOSPHATASE 87 U/L (46-116); ANION GAP 16 mmol/L (8-16); ASPARTATE AMINOTRANSFERASE 67 U/L (15-37); BILIRUBIN,TOTAL 0.3 mg/dL (0.1-1.0); CARBON DIOXIDE 18 mmol/L (22-29); CHLORIDE 110 mmol/L (98-107); CREATININE 0.97 mg/dL (0.60-1.30); GLOMERULAR FILTR. RATE CALC > 60 mL/min (>60); GLUCOSE,RANDOM 141 mg/dL (70-110); POTASSIUM 3.2 mmol/L (3.5-5.1); SODIUM SERUM 144 mmol/L (136-145); UREA NITROGEN, BLOOD 8 mg/dL (7-18)
[2018-07-24] MEDS: PANTOPRAZOLE SODIUM 40 MG/VIAL IVP SCH (09:14)
[2018-07-24] MEDS: HEPARIN SODIUM,PORCINE 5,000 UNITS/ML VIAL SQ SCH ×2 (09:14→19:57)
[2018-07-24] MEDS: DOCUSATE SODIUM 100 MG CAPSULE PO SCH (09:15)
[2018-07-24] MEDS: BENZTROPINE MESYLATE 0.5 MG TABLET PO SCH ×2 (09:18→19:56)
[2018-07-24] MEDS: DEXTROSE 5%-0.45% SODIUM CHL 1,000 ML IV SCH (09:24)
[2018-07-24 11:34] VITALS: BP 122/80
[2018-07-24 15:24] VITALS: BP 132/94
[2018-07-24] MEDS: POTASSIUM CHLORIDE 10% 40 MEQ/30 ML LIQUID UDCUP NG PRN (18:12)
[2018-07-24 19:55] VITALS: BP 132/85
[2018-07-24] MEDS: OLANZapine 10 MG TABLET PO SCH (19:59)
[2018-07-25] VITALS (7 sets, daily range): BP systolic 118–149; BP diastolic 55–93
[2018-07-25] MEDS ORDERED: SODIUM CHLORIDE 0.9% 100 ML ONE (02:33)
[2018-07-25] MEDS: POTASSIUM CHL 10 MEQ/WATER 50 ML IV PRN ×8 (02:42→18:01)
[2018-07-25] MEDS: ALBUTEROL SULFATE HFA 90 MCG/PUFF 8 GM INHALER IH PRN (02:46)
[2018-07-25] MEDS ORDERED: SODIUM CHLORIDE 0.9% 250 ML IV ONE ×2 (05:32→18:57)
[2018-07-25 06:38] LABS: ALANINE AMINOTRANSFERASE 175 U/L (12-78); ALBUMIN 2.5 g/dL (3.4-5.0); ALKALINE PHOSPHATASE 71 U/L (46-116); ANION GAP 15 mmol/L (8-16); ASPARTATE AMINOTRANSFERASE 49 U/L (15-37); BILIRUBIN,TOTAL 0.3 mg/dL (0.1-1.0); CALCIUM, TOTAL 8.9 mg/dL (8.8-10.5); CARBON DIOXIDE 20 mmol/L (22-29); CHLORIDE 105 mmol/L (98-107); CREATININE 0.78 mg/dL (0.60-1.30); GLOMERULAR FILTR. RATE CALC > 60 mL/min (>60); GLUCOSE,RANDOM 115 mg/dL (70-110); SODIUM SERUM 140 mmol/L (136-145); TOTAL PROTEIN, SERUM 6.2 g/dL (6.4-8.2); UREA NITROGEN, BLOOD 7 mg/dL (7-18)
[2018-07-25 06:42] LABS: POTASSIUM 2.6 mmol/L (3.5-5.1)
[2018-07-25] MEDS: DOCUSATE SODIUM 100 MG CAPSULE PO SCH (08:20)
[2018-07-25] MEDS: PANTOPRAZOLE SODIUM 40 MG/VIAL IVP SCH (08:20)
[2018-07-25] MEDS: LACTULOSE 20 GM/30 ML SOLUTION UDCUP PO SCH ×3 (08:20→20:24)
[2018-07-25] MEDS: BENZTROPINE MESYLATE 0.5 MG TABLET PO SCH ×2 (08:20→20:25)
[2018-07-25] MEDS: HEPARIN SODIUM,PORCINE 5,000 UNITS/ML VIAL SQ SCH ×2 (08:21→20:25)
[2018-07-25] MEDS ORDERED: SODIUM CHLORIDE 0.9% 500 ML IV ONE (11:18)
[2018-07-25] MEDS: POTASSIUM CHLORIDE 20 MEQ ER TABLET PO PRN (20:25)
[2018-07-25] MEDS: OLANZapine 10 MG TABLET PO SCH (20:25)
[2018-07-26 03:12] VITALS: BP 121/71
[2018-07-26 07:44] VITALS: BP 126/64
[2018-07-26] MEDS: LACTULOSE 20 GM/30 ML SOLUTION UDCUP PO SCH ×3 (10:19→21:21)
[2018-07-26] MEDS: HEPARIN SODIUM,PORCINE 5,000 UNITS/ML VIAL SQ SCH ×2 (10:19→21:22)
[2018-07-26] MEDS: DOCUSATE SODIUM 100 MG CAPSULE PO SCH (10:19)
[2018-07-26] MEDS: BENZTROPINE MESYLATE 0.5 MG TABLET PO SCH ×2 (10:19→21:21)
[2018-07-26] MEDS: PANTOPRAZOLE SODIUM 40 MG/VIAL IVP SCH (10:19)
[2018-07-26 12:11] VITALS: BP 119/62
[2018-07-26 16:03] VITALS: BP 132/64
[2018-07-26 19:15] VITALS: BP 128/62
[2018-07-26] MEDS: OLANZapine 10 MG TABLET PO SCH (21:22)
[2018-07-26 23:15] VITALS: BP 131/64
[2018-07-27 03:50] VITALS: BP 126/66
[2018-07-27 06:07] LABS: BASOPHILS % (AUTO) 0.8 % (0.0-2.0); EOSINOPHILS % (AUTO) 2.4 % (1.0-6.0); HEMATOCRIT 34.7 % (41-53); HEMOGLOBIN 11.6 g/dL (13.5-17.5); LYMPHOCYTES % (AUTO) 18.4 % (22.0-44.0); MEAN CORPUSCULAR HEMOGLOBIN 27.9 pg (26.0-34.0); MEAN CORPUSCULAR HGB CONC 33.4 G/dL (31.0-37.0); MEAN CORPUSCULAR VOLUME 84 fL (80-100); MONOCYTES # (AUTO) 0.6 K/uL (0.1-1.0); MONOCYTES % (AUTO) 5.9 % (2.0-9.0); NEUTROPHILS # (AUTO) 7.7 K/uL (1.8-7.7); NEUTROPHILS % (AUTO) 72.5 % (40.0-70.0); PLATELET COUNT (AUTO) 236 K/uL (150-450); RED BLOOD CELL COUNT(AUTO) 4.15 MIL/uL (4.50-5.90); RED CELL DISTRIBUTION WIDTH 13.8 % (11.5-14.5)
[2018-07-27 06:33] LABS: ALANINE AMINOTRANSFERASE 237 U/L (12-78); ALBUMIN 2.5 g/dL (3.4-5.0); ALKALINE PHOSPHATASE 71 U/L (46-116); ANION GAP 11 mmol/L (8-16); ASPARTATE AMINOTRANSFERASE 88 U/L (15-37); BILIRUBIN,TOTAL 0.5 mg/dL (0.1-1.0); CARBON DIOXIDE 26 mmol/L (22-29); CHLORIDE 103 mmol/L (98-107); CREATININE 0.63 mg/dL (0.60-1.30); GLOMERULAR FILTR. RATE CALC > 60 mL/min (>60); GLUCOSE,RANDOM 96 mg/dL (70-110); POTASSIUM 3.2 mmol/L (3.5-5.1); SODIUM SERUM 140 mmol/L (136-145); TOTAL PROTEIN, SERUM 5.8 g/dL (6.4-8.2); UREA NITROGEN, BLOOD 8 mg/dL (7-18)
[2018-07-27 07:30] VITALS: BP 110/62
[2018-07-27] MEDS: PANTOPRAZOLE SODIUM 40 MG/VIAL IVP SCH (09:48)
[2018-07-27] MEDS: HEPARIN SODIUM,PORCINE 5,000 UNITS/ML VIAL SQ SCH (09:49)
[2018-07-27] MEDS: BENZTROPINE MESYLATE 0.5 MG TABLET PO SCH (09:50)
[2018-07-27] MEDS: DOCUSATE SODIUM 100 MG CAPSULE PO SCH (09:50)
[2018-07-27] MEDS: LACTULOSE 20 GM/30 ML SOLUTION UDCUP PO SCH ×2 (09:50→16:55)
[2018-07-27] MEDS: POTASSIUM CHLORIDE 20 MEQ ER TABLET PO PRN (09:54)
[2018-07-27 11:00] VITALS: BP 124/68
[2018-07-27 15:11] VITALS: BP 130/68
== END 2018-07-27 18:45 | DRG 642 ==
LOC: 6N 17:30 → ICU 07-19 05:34 → 6N 07-21 14:30
PROVIDERS: ADMIT Internal Medicine; ATTEND Internal Medicine
PROC: 0D9670Z Drainage of Stomach with Drainage Device, Via Natural or Artificial Opening (ICD-10-PCS; principal; 2018-07-19)
DX: E72.20 Disorder of urea cycle metabolism, unspecified (principal); K56.7 Ileus, unspecified; E87.0 Hyperosmolality and hypernatremia; F20.0 Paranoid schizophrenia; G93.40 Encephalopathy, unspecified; I10 Essential (primary) hypertension; K59.00 Constipation, unspecified; K21.9 Gastro-esophageal reflux disease without esophagitis; B35.9 Dermatophytosis, unspecified; G47.00 Insomnia, unspecified; T43.8X5A Adverse effect of other psychotropic drugs, initial encounter; E78.5 Hyperlipidemia, unspecified; J44.9 Chronic obstructive pulmonary disease, unspecified; R00.0 Tachycardia, unspecified; R09.02 Hypoxemia; Z79.899 Other long term (current) drug therapy; Z72.0 Tobacco use; Z71.89 Other specified counseling; Y92.89 Other specified places as the place of occurrence of the external cause
CPT/HCPCS: 70450; 74018; 74176; 80074; 80307; 83605; 83735; 84100; 84132; 87081; 92610; 94640; C9113; G0378; J1644; J2060; J2405; J3480; J3535; J7030; J7040; J7050

== ENCOUNTER 2018-07-27 16:29 | Inpatient (IN) | payer MEDICARE, MEDICAID ==
[~2018-07-27] VITALS: Ht 177.8 cm; Wt 89.2 kg
[~2018-07-27 16:29] MED LIST changes: -OMEG-135 PO
[2018-07-27] MEDS ORDERED: HALOPERIDOL 5 MG TABLET PO PRN (17:45)
[2018-07-27] MEDS ORDERED: ZOLPIDEM TARTRATE 10 MG TABLET PO PRN (17:45)
[2018-07-27 19:00] VITALS: BP 122/73
[2018-07-27] MEDS ORDERED: ONDANSETRON HCL 4 MG TABLET PO PRN (20:15)
[2018-07-27] MEDS ORDERED: CloNIDine HCL 0.1 MG TABLET PO PRN (20:15)
[2018-07-27] MEDS ORDERED: MAGNESIUM HYDROXIDE SUSPENSION 30 ML UDCUP PO PRN (20:15)
[2018-07-27] MEDS ORDERED: BACITRACIN 28.4 GM OINTMENT TP PRN (20:15)
[2018-07-27] MEDS ORDERED: BENZOCAINE/MENTHOL LOZENGE MM PRN (20:15)
[2018-07-27] MEDS ORDERED: PETROLATUM,WHITE 28 GM JELLY TP PRN (20:15)
[2018-07-27] MEDS ORDERED: ACETAMINOPHEN 325 MG TABLET PO PRN (20:15)
[2018-07-27] MEDS ORDERED: MAG HYDROX/AL HYDROX/SIMETH ES 30 ML SUSPENSION UDCUP PO PRN (20:15)
[2018-07-27] MEDS ORDERED: IBUPROFEN 600 MG TABLET PO PRN (20:15)
[2018-07-27] MEDS ORDERED: ALBUTEROL SULFATE HFA 90 MCG/PUFF 8 GM INHALER IH PRN (20:15)
[2018-07-27] MEDS ORDERED: LOPERAMIDE HCL 2 MG CAPSULE PO PRN (20:15)
[2018-07-27] MEDS: LACTULOSE 20 GM/30 ML SOLUTION UDCUP PO SCH (20:43)
[2018-07-27] MEDS: OLANZapine 10 MG TABLET PO SCH (20:44)
[2018-07-27] MEDS ORDERED: BENZTROPINE MESYLATE 0.5 MG TABLET PO SCH (21:00)
[2018-07-28] MEDS: DOCUSATE SODIUM 100 MG CAPSULE PO SCH (08:42)
[2018-07-28] MEDS: OMEPRAZOLE 20 MG CAPSULE PO SCH (08:42)
[2018-07-28] MEDS: LACTULOSE 20 GM/30 ML SOLUTION UDCUP PO SCH ×3 (08:43→17:16)
[2018-07-28] MEDS ORDERED: PANTOPRAZOLE SODIUM 40 MG DR TABLET PO SCH (09:00)
[2018-07-28 10:09] VITALS: BP 109/75
[2018-07-28 16:21] VITALS: BP 116/80
[2018-07-28] MEDS: OLANZapine 10 MG TABLET PO SCH (20:39)
[2018-07-29 08:09] VITALS: BP 152/104
[2018-07-29] MEDS: OMEPRAZOLE 20 MG CAPSULE PO SCH (08:35)
[2018-07-29] MEDS: LACTULOSE 20 GM/30 ML SOLUTION UDCUP PO SCH ×3 (08:35→17:05)
[2018-07-29] MEDS: DOCUSATE SODIUM 100 MG CAPSULE PO SCH (08:35)
[2018-07-29 10:31] LABS: BAND NEUTROPHILS % (MANUAL) 0 % (0-5)
[2018-07-29 10:37] LABS: HEMATOCRIT 38.9 % (41-53); HEMOGLOBIN 12.6 g/dL (13.5-17.5); MEAN CORPUSCULAR HEMOGLOBIN 27.3 pg (26.0-34.0); MEAN CORPUSCULAR HGB CONC 32.3 G/dL (31.0-37.0); MEAN CORPUSCULAR VOLUME 84 fL (80-100); PLATELET COUNT (AUTO) 309 K/uL (150-450); RED BLOOD CELL COUNT(AUTO) 4.61 MIL/uL (4.50-5.90); RED CELL DISTRIBUTION WIDTH 14.2 % (11.5-14.5)
[2018-07-29 11:03] LABS: ANION GAP 8 mmol/L (8-16); CALCIUM, TOTAL 8.8 mg/dL (8.8-10.5); CARBON DIOXIDE 28 mmol/L (22-29); CHLORIDE 105 mmol/L (98-107); CREATININE 0.94 mg/dL (0.60-1.30); GLOMERULAR FILTR. RATE CALC > 60 mL/min (>60); GLUCOSE,RANDOM 107 mg/dL (70-110); PHOSPHORUS 3.4 mg/dL (2.5-4.9); POTASSIUM 3.8 mmol/L (3.5-5.1); SODIUM SERUM 141 mmol/L (136-145); UREA NITROGEN, BLOOD 13 mg/dL (7-18)
[2018-07-29 11:05] LABS: EOSINOPHILS % (MANUAL) 1 % (1-6); LYMPHOCYTES % (MANUAL) 13 % (22-44); MONOCYTES % (MANUAL) 3 % (2-9); SEGMENTED NEUTROPHILS % 83 % (40-70)
[2018-07-29 16:13] VITALS: BP 117/70
[2018-07-29] MEDS: OLANZapine 10 MG TABLET PO SCH (20:42)
[2018-07-30 06:30] LABS: CHOL/HDL RATIO 4.1 (4.2-7.3); THYROID STIMULATING HORMONE 1.05 uIU/mL (0.36-3.74)
[2018-07-30] MEDS: LACTULOSE 20 GM/30 ML SOLUTION UDCUP PO SCH ×3 (08:09→16:10)
[2018-07-30] MEDS: OMEPRAZOLE 20 MG CAPSULE PO SCH (08:09)
[2018-07-30] MEDS: DOCUSATE SODIUM 100 MG CAPSULE PO SCH (08:09)
[2018-07-30 10:41] VITALS: BP 113/76
[2018-07-30 16:55] VITALS: BP 115/67
[2018-07-30] MEDS: OLANZapine 10 MG TABLET PO SCH (20:15)
[2018-07-31 08:05] VITALS: BP 123/86
[2018-07-31] MEDS: LACTULOSE 20 GM/30 ML SOLUTION UDCUP PO SCH ×3 (08:45→16:11)
[2018-07-31] MEDS: DOCUSATE SODIUM 100 MG CAPSULE PO SCH (08:45)
[2018-07-31] MEDS: OMEPRAZOLE 20 MG CAPSULE PO SCH (08:45)
[2018-07-31 16:26] VITALS: BP 113/71
[2018-07-31] MEDS: OLANZapine 10 MG TABLET PO SCH (20:20)
[2018-08-01 06:17] LABS: BAND NEUTROPHILS % (MANUAL) 0 % (0-5)
[2018-08-01 06:25] LABS: HEMATOCRIT 39.3 % (41-53); HEMOGLOBIN 12.7 g/dL (13.5-17.5); MEAN CORPUSCULAR HEMOGLOBIN 27.4 pg (26.0-34.0); MEAN CORPUSCULAR HGB CONC 32.3 G/dL (31.0-37.0); MEAN CORPUSCULAR VOLUME 85 fL (80-100); PLATELET COUNT (AUTO) 356 K/uL (150-450); RED BLOOD CELL COUNT(AUTO) 4.64 MIL/uL (4.50-5.90); RED CELL DISTRIBUTION WIDTH 14.2 % (11.5-14.5)
[2018-08-01 06:39] LABS: ANION GAP 8 mmol/L (8-16); CALCIUM, TOTAL 9.5 mg/dL (8.8-10.5); CARBON DIOXIDE 28 mmol/L (22-29); CHLORIDE 103 mmol/L (98-107); CREATININE 0.91 mg/dL (0.60-1.30); GLOMERULAR FILTR. RATE CALC > 60 mL/min (>60); GLUCOSE,RANDOM 102 mg/dL (70-110); PHOSPHORUS 4.1 mg/dL (2.5-4.9); POTASSIUM 4.1 mmol/L (3.5-5.1); SODIUM SERUM 139 mmol/L (136-145); UREA NITROGEN, BLOOD 13 mg/dL (7-18)
[2018-08-01 08:04] LABS: BASOPHILS % (MANUAL) 1 % (0-2); EOSINOPHILS % (MANUAL) 1 % (1-6); LYMPHOCYTES % (MANUAL) 19 % (22-44); MONOCYTES % (MANUAL) 8 % (2-9); SEGMENTED NEUTROPHILS % 71 % (40-70)
[2018-08-01] MEDS: LACTULOSE 20 GM/30 ML SOLUTION UDCUP PO SCH ×3 (08:06→15:55)
[2018-08-01] MEDS: DOCUSATE SODIUM 100 MG CAPSULE PO SCH (08:06)
[2018-08-01] MEDS: OMEPRAZOLE 20 MG CAPSULE PO SCH (08:06)
[2018-08-01 10:24] VITALS: BP 107/92
[2018-08-01 18:03] VITALS: BP 135/84
[2018-08-01] MEDS: OLANZapine 10 MG TABLET PO SCH (19:58)
[2018-08-02] MEDS: LACTULOSE 20 GM/30 ML SOLUTION UDCUP PO SCH ×3 (08:37→16:10)
[2018-08-02] MEDS: DOCUSATE SODIUM 100 MG CAPSULE PO SCH (08:37)
[2018-08-02] MEDS: OMEPRAZOLE 20 MG CAPSULE PO SCH (08:37)
[2018-08-02 09:20] VITALS: BP 117/86
[2018-08-02 19:18] VITALS: BP 130/88
[2018-08-02] MEDS: OLANZapine 10 MG TABLET PO SCH (20:45)
[2018-08-03] MEDS: OMEPRAZOLE 20 MG CAPSULE PO SCH (08:48)
[2018-08-03] MEDS: LACTULOSE 20 GM/30 ML SOLUTION UDCUP PO SCH ×3 (08:48→16:03)
[2018-08-03] MEDS: DOCUSATE SODIUM 100 MG CAPSULE PO SCH (08:48)
[2018-08-03 09:58] VITALS: BP 127/68
[2018-08-03 16:58] VITALS: BP 123/71
[2018-08-03] MEDS: OLANZapine 10 MG TABLET PO SCH (20:21)
[2018-08-04 00:23] VITALS: BP 124/83
[2018-08-04] MEDS: LORazepam 2 MG TABLET PO PRN ×2 (00:28→20:19)
[2018-08-04] MEDS: LACTULOSE 20 GM/30 ML SOLUTION UDCUP PO SCH ×3 (08:34→16:04)
[2018-08-04] MEDS: DOCUSATE SODIUM 100 MG CAPSULE PO SCH (08:34)
[2018-08-04] MEDS: OMEPRAZOLE 20 MG CAPSULE PO SCH (08:34)
[2018-08-04 08:50] VITALS: BP 98/78
[2018-08-04 16:30] VITALS: BP 118/81
[2018-08-04] MEDS: OLANZapine 10 MG TABLET PO SCH (20:16)
[2018-08-05] MEDS: DOCUSATE SODIUM 100 MG CAPSULE PO SCH (08:02)
[2018-08-05] MEDS: LACTULOSE 20 GM/30 ML SOLUTION UDCUP PO SCH ×2 (08:02→16:43)
[2018-08-05] MEDS: OMEPRAZOLE 20 MG CAPSULE PO SCH (08:02)
[2018-08-05 09:36] VITALS: BP 119/79
[2018-08-05 18:18] VITALS: BP 102/76
[2018-08-05] MEDS: OLANZapine 10 MG TABLET PO SCH (20:47)
[2018-08-06] MEDS: DOCUSATE SODIUM 100 MG CAPSULE PO SCH (08:24)
[2018-08-06] MEDS: LACTULOSE 20 GM/30 ML SOLUTION UDCUP PO SCH ×2 (08:24→16:03)
[2018-08-06] MEDS: OMEPRAZOLE 20 MG CAPSULE PO SCH (08:24)
[2018-08-06 08:48] VITALS: BP 124/79
[2018-08-06 17:03] VITALS: BP 108/74
[2018-08-06] MEDS: OLANZapine 10 MG TABLET PO SCH (20:18)
[2018-08-07 06:41] LABS: HEMATOCRIT 39.4 % (41-53); HEMOGLOBIN 12.9 g/dL (13.5-17.5); MEAN CORPUSCULAR HEMOGLOBIN 27.5 pg (26.0-34.0); MEAN CORPUSCULAR HGB CONC 32.7 G/dL (31.0-37.0); MEAN CORPUSCULAR VOLUME 84 fL (80-100); PLATELET COUNT (AUTO) 362 K/uL (150-450); RED BLOOD CELL COUNT(AUTO) 4.69 MIL/uL (4.50-5.90); RED CELL DISTRIBUTION WIDTH 13.8 % (11.5-14.5)
[2018-08-07 06:55] LABS: ANION GAP 11 mmol/L (8-16); CALCIUM, TOTAL 9.1 mg/dL (8.8-10.5); CARBON DIOXIDE 25 mmol/L (22-29); CHLORIDE 104 mmol/L (98-107); CREATININE 0.75 mg/dL (0.60-1.30); GLOMERULAR FILTR. RATE CALC > 60 mL/min (>60); GLUCOSE,RANDOM 95 mg/dL (70-110); PHOSPHORUS 3.6 mg/dL (2.5-4.9); POTASSIUM 3.8 mmol/L (3.5-5.1); SODIUM SERUM 140 mmol/L (136-145); UREA NITROGEN, BLOOD 15 mg/dL (7-18)
[2018-08-07 08:05] VITALS: BP 118/66
[2018-08-07] MEDS: OMEPRAZOLE 20 MG CAPSULE PO SCH (08:19)
[2018-08-07] MEDS: DOCUSATE SODIUM 100 MG CAPSULE PO SCH (08:19)
[2018-08-07] MEDS: LACTULOSE 20 GM/30 ML SOLUTION UDCUP PO SCH ×2 (08:19→16:21)
[2018-08-07 09:37] LABS: BAND NEUTROPHILS % (MANUAL) 1 % (0-5); EOSINOPHILS % (MANUAL) 1 % (1-6); LYMPHOCYTES % (MANUAL) 18 % (22-44); MONOCYTES % (MANUAL) 9 % (2-9); SEGMENTED NEUTROPHILS % 71 % (40-70)
[2018-08-07 16:43] VITALS: BP 114/81
[2018-08-07] MEDS: OLANZapine 10 MG TABLET PO SCH (20:30)
[2018-08-08 08:05] VITALS: BP 111/69
[2018-08-08] MEDS: LACTULOSE 20 GM/30 ML SOLUTION UDCUP PO SCH ×2 (08:14→16:33)
[2018-08-08] MEDS: DOCUSATE SODIUM 100 MG CAPSULE PO SCH (08:14)
[2018-08-08] MEDS: OMEPRAZOLE 20 MG CAPSULE PO SCH (08:14)
[2018-08-08 16:03] VITALS: BP 119/78
[2018-08-08] MEDS: OLANZapine 10 MG TABLET PO SCH (20:31)
[2018-08-09 08:05] VITALS: BP 108/65
[2018-08-09] MEDS: OMEPRAZOLE 20 MG CAPSULE PO SCH (08:16)
[2018-08-09] MEDS: LACTULOSE 20 GM/30 ML SOLUTION UDCUP PO SCH ×3 (08:16→16:20)
[2018-08-09] MEDS: DOCUSATE SODIUM 100 MG CAPSULE PO SCH (08:16)
[2018-08-09 16:25] VITALS: BP 119/81
[2018-08-09] MEDS: OLANZapine 10 MG TABLET PO SCH (20:14)
[2018-08-10 07:04] LABS: ALBUMIN 3.5 g/dL (3.4-5.0); BILIRUBIN,DIRECT 0.1 mg/dL (0.00-0.20); BILIRUBIN,TOTAL 0.5 mg/dL (0.1-1.0); TOTAL PROTEIN, SERUM 7.6 g/dL (6.4-8.2)
[2018-08-10] MEDS: LACTULOSE 20 GM/30 ML SOLUTION UDCUP PO SCH ×3 (08:25→17:20)
[2018-08-10] MEDS: DOCUSATE SODIUM 100 MG CAPSULE PO SCH (08:25)
[2018-08-10] MEDS: OMEPRAZOLE 20 MG CAPSULE PO SCH (08:25)
[2018-08-10 08:40] VITALS: BP 116/79
[2018-08-10 16:27] VITALS: BP 117/74
[2018-08-10] MEDS: OLANZapine 10 MG TABLET PO SCH (20:52)
[2018-08-11] MEDS: OMEPRAZOLE 20 MG CAPSULE PO SCH (08:43)
[2018-08-11] MEDS: LACTULOSE 20 GM/30 ML SOLUTION UDCUP PO SCH (08:43)
[2018-08-11] MEDS: DOCUSATE SODIUM 100 MG CAPSULE PO SCH (08:43)
[2018-08-11 10:46] VITALS: BP 134/96
== END 2018-08-11 12:30 | disposition home or self-care (01) | DRG 885 ==
LOC: 3EX 18:45
PROVIDERS: ADMIT Psychiatry & Neurology Psychiatry; ATTEND Psychiatry & Neurology Psychiatry
DX: F25.9 Schizoaffective disorder, unspecified (principal); G93.40 Encephalopathy, unspecified; E78.5 Hyperlipidemia, unspecified; E78.1 Pure hyperglyceridemia; F17.200 Nicotine dependence, unspecified, uncomplicated; G47.00 Insomnia, unspecified; J44.9 Chronic obstructive pulmonary disease, unspecified; K21.9 Gastro-esophageal reflux disease without esophagitis; K59.00 Constipation, unspecified
CPT/HCPCS: 83735; 84100; 84443; 85007; G0378

== ENCOUNTER 2021-04-16 11:13 | Inpatient (IN) | payer MEDICARE, MEDICAID ==
[~2021-04-16] VITALS: Ht 175.3 cm; Wt 92.2 kg
[~2021-04-16 11:13] MED LIST changes: -BACI30OI6 TP; -BENZ0.5T44 PO; -NYST30OI6 TP; -OLAN20TA17 PO; +OLAN20TA35 PO
[2021-04-16] MEDS ORDERED: OLAN10TA22 PO (11:55)
[2021-04-16] MEDS ORDERED: ZOLP10TA8 PO (11:55)
[2021-04-16] MEDS ORDERED: MELA10TA2 PO (11:55)
[2021-04-16] MEDS ORDERED: [UNRECOGNIZED DRUG - CODE] PO (11:55)
[2021-04-16] MEDS ORDERED: OLAN5TAB94 PO (11:55)
[2021-04-16 11:56] LABS: BASOPHILS % (AUTO) 0.4 % (0.0-2.0); EOSINOPHILS % (AUTO) 0.1 % (1.0-6.0); HEMATOCRIT 42.6 % (41-53); HEMOGLOBIN 14.2 g/dL (13.5-17.5); LYMPHOCYTES # (AUTO) 1.9 K/uL (1.0-4.8); LYMPHOCYTES % (AUTO) 15.6 % (22.0-44.0); MEAN CORPUSCULAR HGB CONC 33.4 G/dL (31.0-37.0); MEAN CORPUSCULAR VOLUME 84 fL (80-100); MONOCYTES # (AUTO) 0.9 K/uL (0.1-1.0); MONOCYTES % (AUTO) 7.8 % (2.0-9.0); NEUTROPHILS # (AUTO) 9.2 K/uL (1.8-7.7); NEUTROPHILS % (AUTO) 76.1 % (40.0-70.0); PLATELET COUNT (AUTO) 262 K/uL (150-450); RED BLOOD CELL COUNT(AUTO) 5.09 MIL/uL (4.50-5.90); RED CELL DISTRIBUTION WIDTH 13.7 % (11.5-14.5)
[2021-04-16 12:16] LABS: ANION GAP 17 mmol/L (8-16); CALCIUM, TOTAL 9.5 mg/dL (8.8-10.5); CARBON DIOXIDE 20 mmol/L (22-29); CHLORIDE 104 mmol/L (98-107); CREATININE 1.05 mg/dL (0.60-1.30); GLOMERULAR FILTR. RATE CALC > 60 mL/min (>60); GLUCOSE,RANDOM 128 mg/dL (70-110); POTASSIUM 3.3 mmol/L (3.5-5.1); SODIUM SERUM 141 mmol/L (136-145); UREA NITROGEN, BLOOD 27 mg/dL (7-18)
[2021-04-16 12:30] LABS: ALANINE AMINOTRANSFERASE 134 U/L (12-78); ALBUMIN 4.5 g/dL (3.4-5.0); ALKALINE PHOSPHATASE 95 U/L (46-116); ASPARTATE AMINOTRANSFERASE 82 U/L (15-37); TOTAL PROTEIN, SERUM 8.6 g/dL (6.4-8.2)
[2021-04-16] MEDS ORDERED: HALOPERIDOL 5 MG TABLET PO ONE (13:15)
[2021-04-16] MEDS ORDERED: BENZTROPINE MESYLATE 2 MG TABLET PO ONE (13:15)
[2021-04-16] MEDS ORDERED: CLOZ100T31 PO (13:32)
[2021-04-16] MEDS ORDERED: CLOZ100T32 PO (13:32)
[2021-04-16] MEDS ORDERED: DOCU-270 PO (13:32)
[2021-04-16] MEDS ORDERED: CLOZ25TA5 PO (13:32)
[2021-04-16] MEDS ORDERED: OLAN10TA26 PO (13:32)
[2021-04-16] MEDS ORDERED: CLON0.5T4 PO (13:32)
[2021-04-16] MEDS ORDERED: RISPC50 IM (13:32)
[2021-04-16] MEDS ORDERED: POTASSIUM CHLORIDE 10% 40 MEQ/30 ML LIQUID UDCUP PO ONE (14:00)
[2021-04-16] MEDS ORDERED: ZOLPIDEM TARTRATE 10 MG TABLET PO PRN (14:45)
[2021-04-16 15:30] LABS: COVID AG,FIA SOURCE NASOPHARYNGEAL
[2021-04-16 18:00] VITALS: BP 137/82
[2021-04-16] MEDS ORDERED: GuaiFENesin/D-METHORPHAN [SUGAR-FREE] 200-20MG/10 ML SYRUP UDCUP PO PRN (21:15)
[2021-04-16] MEDS ORDERED: PETROLATUM,WHITE 28 GM JELLY TP PRN (21:15)
[2021-04-16] MEDS ORDERED: ONDANSETRON HCL 4 MG TABLET PO PRN (21:15)
[2021-04-16] MEDS ORDERED: IBUPROFEN 400 MG TABLET PO PRN (21:15)
[2021-04-16] MEDS ORDERED: CloNIDine HCL 0.1 MG TABLET PO PRN (21:15)
[2021-04-16] MEDS ORDERED: ACETAMINOPHEN 325 MG TABLET PO PRN (21:15)
[2021-04-16] MEDS ORDERED: DOCUSATE SODIUM 100 MG CAPSULE PO PRN (21:15)
[2021-04-16] MEDS ORDERED: MAG HYDROX/AL HYDROX/SIMETH ES 30 ML SUSPENSION UDCUP PO PRN (21:15)
[2021-04-16] MEDS ORDERED: MAGNESIUM HYDROXIDE SUSPENSION 30 ML UDCUP PO PRN (21:15)
[2021-04-16] MEDS ORDERED: NICOTINE 14 MG/24 HOUR PATCH TD PRN (21:15)
[2021-04-16] MEDS ORDERED: ALBUTEROL SULFATE HFA 90 MCG/PUFF 8 GM INHALER IH PRN (21:15)
[2021-04-16] MEDS ORDERED: LOPERAMIDE HCL 2 MG CAPSULE PO PRN (21:15)
[2021-04-17 06:45] LABS: HEMOGLOBIN A1C 5.7 % (3.8-5.6)
[2021-04-17 06:48] LABS: CHOL/HDL RATIO 3.7 (4.2-7.3)
[2021-04-17 07:10] LABS: THYROID STIMULATING HORMONE 1.03 uIU/mL (0.36-3.74)
[2021-04-17] MEDS: OLANZapine 5 MG TABLET PO SCH (10:54)
[2021-04-17] MEDS: CloZAPine 25 MG TABLET PO SCH (16:25)
[2021-04-17] MEDS: HALOPERIDOL 5 MG TABLET PO PRN (16:26)
[2021-04-17] MEDS: MELATONIN 5 MG TABLET PO SCH (20:09)
[2021-04-17] MEDS: CloZAPine 100 MG TABLET PO SCH (20:10)
[2021-04-17] MEDS: OLANZapine 10 MG TABLET PO SCH (20:10)
[2021-04-18] MEDS: CloZAPine 100 MG TABLET PO SCH ×2 (08:28→20:19)
[2021-04-18] MEDS: CloZAPine 25 MG TABLET PO SCH (08:29)
[2021-04-18] MEDS: OLANZapine 5 MG TABLET PO SCH (08:30)
[2021-04-18] MEDS: LORazepam 2 MG TABLET PO PRN ×2 (09:50→18:01)
[2021-04-18 15:19] LABS: BASOPHILS % (AUTO) 0.6 % (0.0-2.0); EOSINOPHILS % (AUTO) 1.1 % (1.0-6.0); HEMATOCRIT 39.5 % (41-53); HEMOGLOBIN 12.9 g/dL (13.5-17.5); LYMPHOCYTES # (AUTO) 3.3 K/uL (1.0-4.8); MEAN CORPUSCULAR HEMOGLOBIN 27.7 pg (26.0-34.0); MEAN CORPUSCULAR HGB CONC 32.8 G/dL (31.0-37.0); MEAN CORPUSCULAR VOLUME 85 fL (80-100); MONOCYTES # (AUTO) 0.9 K/uL (0.1-1.0); MONOCYTES % (AUTO) 9.6 % (2.0-9.0); NEUTROPHILS # (AUTO) 5.1 K/uL (1.8-7.7); NEUTROPHILS % (AUTO) 53.7 % (40.0-70.0); PLATELET COUNT (AUTO) 249 K/uL (150-450); RED BLOOD CELL COUNT(AUTO) 4.67 MIL/uL (4.50-5.90); RED CELL DISTRIBUTION WIDTH 13.5 % (11.5-14.5)
[2021-04-18 15:30] LABS: ANION GAP 9 mmol/L (8-16); CALCIUM, TOTAL 9.7 mg/dL (8.8-10.5); CARBON DIOXIDE 30 mmol/L (22-29); CHLORIDE 103 mmol/L (98-107); CREATININE 0.89 mg/dL (0.60-1.30); GLOMERULAR FILTR. RATE CALC > 60 mL/min (>60); GLUCOSE,RANDOM 119 mg/dL (70-110); POTASSIUM 3.4 mmol/L (3.5-5.1); SODIUM SERUM 142 mmol/L (136-145); UREA NITROGEN, BLOOD 21 mg/dL (7-18)
[2021-04-18 17:19] VITALS: BP 134/83
[2021-04-18] MEDS: OLANZapine 10 MG TABLET PO SCH (20:18)
[2021-04-18] MEDS: MELATONIN 5 MG TABLET PO SCH (20:18)
[2021-04-19] MEDS: HALOPERIDOL 5 MG TABLET PO PRN ×2 (06:02→15:53)
[2021-04-19] MEDS: LORazepam 1 MG TABLET PO PRN ×2 (06:02→15:53)
[2021-04-19 08:48] VITALS: BP 118/83
[2021-04-19] MEDS: CloZAPine 100 MG TABLET PO SCH ×2 (09:29→20:01)
[2021-04-19] MEDS: OLANZapine 5 MG TABLET PO SCH (09:29)
[2021-04-19] MEDS: CloZAPine 25 MG TABLET PO SCH (16:00)
[2021-04-19 16:20] VITALS: BP 149/98
[2021-04-19] MEDS: MELATONIN 5 MG TABLET PO SCH (20:01)
[2021-04-19] MEDS: OLANZapine 10 MG TABLET PO SCH (20:01)
[2021-04-19] MEDS: ClonazePAM 0.5 MG TABLET PO SCH (20:01)
[2021-04-20] MEDS: HALOPERIDOL 5 MG TABLET PO PRN ×2 (00:39→16:26)
[2021-04-20] MEDS: LORazepam 1 MG TABLET PO PRN ×2 (00:40→18:49)
[2021-04-20 08:00] VITALS: BP 119/92
[2021-04-20] MEDS: OLANZapine 5 MG TABLET PO SCH (08:59)
[2021-04-20] MEDS: CloZAPine 100 MG TABLET PO SCH ×2 (09:00→20:06)
[2021-04-20 15:42] LABS: AMPHET/METH SCREEN,URINE NEGATIVE (NEGATIVE); APPEARANCE,URINE CLEAR (CLEAR); BARBITURATE SCREEN, URINE NEGATIVE (NEGATIVE); BENZODIAZEPINES SCREEN,URINE NEGATIVE (NEGATIVE); BILIRUBIN,URINE NEGATIVE (NEGATIVE); CANNABINOID SCREEN,URINE NEGATIVE (NEGATIVE); COCAINE SCREEN,URINE NEGATIVE (NEGATIVE); GLUCOSE, URINE (UA) NEGATIVE (NEGATIVE); KETONES,URINE NEGATIVE (NEGATIVE); LEUKOCYTE ESTERASE ,URINE NEGATIVE (NEGATIVE); METHADONE SCREEN, URINE NEGATIVE (NEGATIVE); NITRATE,URINE NEGATIVE (NEGATIVE); OCCULT BLOOD,URINE NEGATIVE (NEGATIVE); OPIATE SCREEN,URINE NEGATIVE (NEGATIVE); PH,URINE 6.5 (5.0-8.0); PROTEIN,URINE NEGATIVE (NEGATIVE)
[2021-04-20 15:44] LABS: PHENCYCLIDINE SCREEN,URINE NEGATIVE (NEGATIVE)
[2021-04-20 16:05] VITALS: BP 131/76
[2021-04-20] MEDS: CloZAPine 25 MG TABLET PO SCH (16:26)
[2021-04-20] MEDS: OLANZapine 10 MG TABLET PO SCH (20:05)
[2021-04-20] MEDS: MELATONIN 5 MG TABLET PO SCH (20:05)
[2021-04-20] MEDS: ClonazePAM 0.5 MG TABLET PO SCH (20:05)
[2021-04-21 08:01] VITALS: BP 124/88
[2021-04-21] MEDS: LORazepam 1 MG TABLET PO PRN ×2 (08:24→15:47)
[2021-04-21] MEDS: OLANZapine 5 MG TABLET PO SCH (08:24)
[2021-04-21] MEDS: CloZAPine 100 MG TABLET PO SCH ×2 (08:24→20:02)
[2021-04-21] MEDS: HALOPERIDOL 5 MG TABLET PO PRN (15:46)
[2021-04-21 16:06] VITALS: BP 129/82
[2021-04-21] MEDS: CloZAPine 25 MG TABLET PO SCH (16:13)
[2021-04-21] MEDS: MELATONIN 5 MG TABLET PO SCH (20:01)
[2021-04-21] MEDS: OLANZapine 10 MG TABLET PO SCH (20:02)
[2021-04-21] MEDS: ClonazePAM 0.5 MG TABLET PO SCH (20:02)
[2021-04-22 08:01] VITALS: BP 128/76
[2021-04-22 08:01] LABS: COVID AG,FIA SOURCE NASAL SWAB
[2021-04-22] MEDS: CloZAPine 100 MG TABLET PO SCH ×2 (08:05→20:09)
[2021-04-22] MEDS: LORazepam 1 MG TABLET PO PRN ×2 (08:05→16:44)
[2021-04-22] MEDS: OLANZapine 5 MG TABLET PO SCH (08:05)
[2021-04-22 16:05] VITALS: BP 130/92
[2021-04-22] MEDS: CloZAPine 25 MG TABLET PO SCH (16:15)
[2021-04-22] MEDS: HALOPERIDOL 5 MG TABLET PO PRN (16:44)
[2021-04-22] MEDS: OLANZapine 10 MG TABLET PO SCH (20:09)
[2021-04-22] MEDS: MELATONIN 5 MG TABLET PO SCH (20:10)
[2021-04-22] MEDS: ClonazePAM 0.5 MG TABLET PO SCH (20:10)
[2021-04-23 08:11] VITALS: BP 119/78
[2021-04-23] MEDS: CloZAPine 100 MG TABLET PO SCH ×2 (08:28→20:47)
[2021-04-23] MEDS: OLANZapine 5 MG TABLET PO SCH (08:28)
[2021-04-23 16:00] VITALS: BP 129/90
[2021-04-23] MEDS: CloZAPine 25 MG TABLET PO SCH (16:19)
[2021-04-23] MEDS: LORazepam 1 MG TABLET PO PRN (17:52)
[2021-04-23] MEDS: HALOPERIDOL 5 MG TABLET PO PRN (17:53)
[2021-04-23] MEDS: MELATONIN 5 MG TABLET PO SCH (20:47)
[2021-04-23] MEDS: ClonazePAM 0.5 MG TABLET PO SCH (20:47)
[2021-04-23] MEDS: OLANZapine 10 MG TABLET PO SCH (20:47)
[2021-04-24 08:00] VITALS: BP 120/88
[2021-04-24] MEDS: CloZAPine 100 MG TABLET PO SCH ×2 (08:38→20:09)
[2021-04-24] MEDS: OLANZapine 5 MG TABLET PO SCH (08:38)
[2021-04-24] MEDS: CloZAPine 25 MG TABLET PO SCH (16:07)
[2021-04-24 16:56] VITALS: BP 115/93
[2021-04-24] MEDS: MELATONIN 5 MG TABLET PO SCH (20:08)
[2021-04-24] MEDS: OLANZapine 10 MG TABLET PO SCH (20:08)
[2021-04-24] MEDS: ClonazePAM 0.5 MG TABLET PO SCH (20:09)
[2021-04-25 08:01] VITALS: BP 110/76
[2021-04-25] MEDS: CloZAPine 100 MG TABLET PO SCH ×2 (08:38→20:39)
[2021-04-25] MEDS: OLANZapine 5 MG TABLET PO SCH (08:38)
[2021-04-25 10:33] LABS: BASOPHILS % (AUTO) 0.8 % (0.0-2.0); EOSINOPHILS % (AUTO) 3.5 % (1.0-6.0); HEMATOCRIT 40.6 % (41-53); HEMOGLOBIN 13.7 g/dL (13.5-17.5); LYMPHOCYTES % (AUTO) 28.6 % (22.0-44.0); MEAN CORPUSCULAR HGB CONC 33.8 G/dL (31.0-37.0); MEAN CORPUSCULAR VOLUME 83 fL (80-100); MONOCYTES # (AUTO) 0.5 K/uL (0.1-1.0); MONOCYTES % (AUTO) 6.9 % (2.0-9.0); NEUTROPHILS # (AUTO) 4.1 K/uL (1.8-7.7); NEUTROPHILS % (AUTO) 60.2 % (40.0-70.0); PLATELET COUNT (AUTO) 290 K/uL (150-450); RED CELL DISTRIBUTION WIDTH 13.3 % (11.5-14.5)
[2021-04-25 16:11] VITALS: BP 149/86
[2021-04-25] MEDS: CloZAPine 25 MG TABLET PO SCH (16:28)
[2021-04-25] MEDS: HALOPERIDOL 5 MG TABLET PO PRN (17:15)
[2021-04-25] MEDS: LORazepam 1 MG TABLET PO PRN (19:58)
[2021-04-25] MEDS: OLANZapine 10 MG TABLET PO SCH (20:39)
[2021-04-25] MEDS: MELATONIN 5 MG TABLET PO SCH (20:39)
[2021-04-25] MEDS: ClonazePAM 0.5 MG TABLET PO SCH (20:40)
[2021-04-26 08:00] VITALS: BP 134/97
[2021-04-26] MEDS: OLANZapine 5 MG TABLET PO SCH (08:01)
[2021-04-26] MEDS: CloZAPine 100 MG TABLET PO SCH ×2 (08:01→20:48)
[2021-04-26 16:05] VITALS: BP 140/98
[2021-04-26] MEDS: CloZAPine 25 MG TABLET PO SCH (16:24)
[2021-04-26] MEDS: LORazepam 1 MG TABLET PO PRN (19:00)
[2021-04-26] MEDS: HALOPERIDOL 5 MG TABLET PO PRN (19:00)
[2021-04-26] MEDS: MELATONIN 5 MG TABLET PO SCH (20:48)
[2021-04-26] MEDS: OLANZapine 10 MG TABLET PO SCH (20:48)
[2021-04-26] MEDS: ClonazePAM 0.5 MG TABLET PO SCH (20:48)
[2021-04-27 08:01] VITALS: BP 111/82
[2021-04-27] MEDS: OLANZapine 5 MG TABLET PO SCH (08:13)
[2021-04-27] MEDS: CloZAPine 100 MG TABLET PO SCH ×2 (08:13→20:53)
[2021-04-27 16:10] VITALS: BP 139/86
[2021-04-27] MEDS: HALOPERIDOL 5 MG TABLET PO PRN (16:15)
[2021-04-27] MEDS: CloZAPine 25 MG TABLET PO SCH (16:15)
[2021-04-27] MEDS: LORazepam 1 MG TABLET PO PRN (18:46)
[2021-04-27] MEDS: MELATONIN 5 MG TABLET PO SCH (20:52)
[2021-04-27] MEDS: ClonazePAM 0.5 MG TABLET PO SCH (20:52)
[2021-04-27] MEDS: OLANZapine 10 MG TABLET PO SCH (20:53)
[2021-04-28 08:35] VITALS: BP 126/80
[2021-04-28] MEDS: OLANZapine 5 MG TABLET PO SCH (09:34)
[2021-04-28] MEDS: CloZAPine 100 MG TABLET PO SCH ×2 (09:35→20:04)
[2021-04-28] MEDS: CloZAPine 25 MG TABLET PO SCH (16:02)
[2021-04-28 16:03] VITALS: BP 128/82
[2021-04-28] MEDS: ClonazePAM 0.5 MG TABLET PO SCH (20:04)
[2021-04-28] MEDS: MELATONIN 5 MG TABLET PO SCH (20:04)
[2021-04-28] MEDS: OLANZapine 10 MG TABLET PO SCH (20:04)
[2021-04-29 08:56] VITALS: BP 135/95
[2021-04-29] MEDS: CloZAPine 100 MG TABLET PO SCH ×2 (10:13→20:00)
[2021-04-29] MEDS: OLANZapine 5 MG TABLET PO SCH (10:13)
[2021-04-29 12:14] LABS: COVID AG,FIA SOURCE NASAL SWAB
[2021-04-29] MEDS: LORazepam 1 MG TABLET PO PRN (13:20)
[2021-04-29] MEDS: HALOPERIDOL 5 MG TABLET PO PRN (13:20)
[2021-04-29] MEDS: CloZAPine 25 MG TABLET PO SCH (16:01)
[2021-04-29 16:11] VITALS: BP 112/75
[2021-04-29] MEDS: ClonazePAM 0.5 MG TABLET PO SCH (20:00)
[2021-04-29] MEDS: OLANZapine 10 MG TABLET PO SCH (20:00)
[2021-04-29] MEDS: MELATONIN 5 MG TABLET PO SCH (20:01)
[2021-04-30] MEDS: OLANZapine 5 MG TABLET PO SCH (08:02)
[2021-04-30] MEDS: CloZAPine 100 MG TABLET PO SCH ×2 (08:02→21:03)
[2021-04-30] MEDS: LORazepam 1 MG TABLET PO PRN ×2 (08:02→18:28)
[2021-04-30 08:27] VITALS: BP 121/86
[2021-04-30 16:02] VITALS: BP 119/72
[2021-04-30] MEDS: CloZAPine 25 MG TABLET PO SCH (16:19)
[2021-04-30] MEDS: HALOPERIDOL 5 MG TABLET PO PRN (18:28)
[2021-04-30] MEDS: OLANZapine 10 MG TABLET PO SCH (21:03)
[2021-04-30] MEDS: MELATONIN 5 MG TABLET PO SCH (21:03)
[2021-04-30] MEDS: ClonazePAM 0.5 MG TABLET PO SCH (21:03)
[2021-05-01 08:01] VITALS: BP 109/87
[2021-05-01] MEDS: CloZAPine 100 MG TABLET PO SCH ×2 (08:43→20:45)
[2021-05-01] MEDS: OLANZapine 10 MG TABLET PO SCH ×2 (08:44→20:45)
[2021-05-01 15:39] VITALS: BP 116/74
[2021-05-01] MEDS: CloZAPine 25 MG TABLET PO SCH (16:29)
[2021-05-01 17:03] VITALS: BP 116/74
[2021-05-01] MEDS: LORazepam 1 MG TABLET PO PRN (18:14)
[2021-05-01] MEDS: HALOPERIDOL 5 MG TABLET PO PRN (18:14)
[2021-05-01] MEDS: ClonazePAM 0.5 MG TABLET PO SCH (20:45)
[2021-05-01] MEDS: MELATONIN 5 MG TABLET PO SCH (20:45)
[2021-05-02 07:35] LABS: BASOPHILS % (AUTO) 0.6 % (0.0-2.0); EOSINOPHILS % (AUTO) 3.4 % (1.0-6.0); HEMOGLOBIN 13.1 g/dL (13.5-17.5); LYMPHOCYTES # (AUTO) 2.2 K/uL (1.0-4.8); LYMPHOCYTES % (AUTO) 32.7 % (22.0-44.0); MEAN CORPUSCULAR HGB CONC 33.7 G/dL (31.0-37.0); MEAN CORPUSCULAR VOLUME 83 fL (80-100); MONOCYTES # (AUTO) 0.4 K/uL (0.1-1.0); MONOCYTES % (AUTO) 6.4 % (2.0-9.0); NEUTROPHILS # (AUTO) 3.9 K/uL (1.8-7.7); NEUTROPHILS % (AUTO) 56.9 % (40.0-70.0); PLATELET COUNT (AUTO) 270 K/uL (150-450); RED BLOOD CELL COUNT(AUTO) 4.69 MIL/uL (4.50-5.90); RED CELL DISTRIBUTION WIDTH 13.6 % (11.5-14.5)
[2021-05-02] MEDS: CloZAPine 100 MG TABLET PO SCH ×2 (08:09→20:42)
[2021-05-02] MEDS: OLANZapine 10 MG TABLET PO SCH ×2 (08:09→20:42)
[2021-05-02 08:37] VITALS: BP 122/93
[2021-05-02] MEDS: CloZAPine 25 MG TABLET PO SCH (16:19)
[2021-05-02 16:37] VITALS: BP 146/94
[2021-05-02] MEDS: HALOPERIDOL 5 MG TABLET PO PRN (18:30)
[2021-05-02] MEDS: LORazepam 1 MG TABLET PO PRN (18:30)
[2021-05-02] MEDS: MELATONIN 5 MG TABLET PO SCH (20:42)
[2021-05-02] MEDS: ClonazePAM 0.5 MG TABLET PO SCH (20:43)
[2021-05-03] MEDS: LORazepam 1 MG TABLET PO PRN ×2 (06:33→13:44)
[2021-05-03] MEDS: OLANZapine 10 MG TABLET PO SCH ×2 (07:51→20:37)
[2021-05-03] MEDS: CloZAPine 100 MG TABLET PO SCH ×2 (07:51→20:38)
[2021-05-03 08:50] VITALS: BP 128/89
[2021-05-03] MEDS: HALOPERIDOL 5 MG TABLET PO PRN (13:44)
[2021-05-03] MEDS: CloZAPine 25 MG TABLET PO SCH (16:14)
[2021-05-03 16:36] VITALS: BP 150/93
[2021-05-03] MEDS: MELATONIN 5 MG TABLET PO SCH (20:38)
[2021-05-03] MEDS: ClonazePAM 0.5 MG TABLET PO SCH (20:38)
[2021-05-04] MEDS: HALOPERIDOL 5 MG TABLET PO PRN (07:20)
[2021-05-04] MEDS: OLANZapine 10 MG TABLET PO SCH (07:20)
[2021-05-04] MEDS: CloZAPine 100 MG TABLET PO SCH (07:20)
[2021-05-04] MEDS: LORazepam 1 MG TABLET PO PRN (07:21)
[2021-05-04 09:33] VITALS: BP 130/94
[2021-05-04] MEDS ORDERED: OLAN10TA26 PO (11:29)
[2021-05-04] MEDS ORDERED: CLON0.5T4 PO (11:29)
== END 2021-05-04 14:40 | disposition home or self-care (01) | DRG 885 ==
LOC: EMS 11:13 → 3EX 17:10 → 3EC 04-18 18:28
PROVIDERS: ADMIT Psychiatry & Neurology Psychiatry; ATTEND Psychiatry & Neurology Psychiatry
DX: F20.0 Paranoid schizophrenia (principal); R45.851 Suicidal ideations; E87.6 Hypokalemia; E86.0 Dehydration; D72.829 Elevated white blood cell count, unspecified; Z20.822 Contact with and (suspected) exposure to COVID-19; G47.00 Insomnia, unspecified; I10 Essential (primary) hypertension; K21.9 Gastro-esophageal reflux disease without esophagitis; J44.9 Chronic obstructive pulmonary disease, unspecified; K59.00 Constipation, unspecified; R45.850 Homicidal ideations; Z59.00 Homelessness unspecified; Z91.14 Patient's other noncompliance with medication regimen
CPT/HCPCS: 80048; 80053; 80061; 80159; 81003; 82140; 83036; 84132; 84443; 85025; 93005; 99285; G0378; G0480; Q9967